=== PATIENT | male | born 1980 | race Caucasian/White ===

== ENCOUNTER 2021-09-22 10:25 | Emergency (ER) | payer MEDICAID, SELFPAY ==
[2021-09-22 11:40] VITALS: BP 153/103; PULSE 81; RESP 20; TEMP 37.1; O2SAT 99; BMI 38.5
--- NOTE | 2021-09-22 12:10 | MHC.RECOVSUP ---
Recovery Support note: Patient is a 41 year old Omani speaking male who presented to [facility] ED for evaluation of COVID symptoms. Patient reports he was sent from his methadone clinic and that he was unable to get his methadone today. This residential mortgage underwriter spoke with [facility] nursing staff to confirm methadone dose. Siria Wheeler LPN reports patient last dosed on 09/21/21 and that he receives 300mg of methadone. Confirmation form completed and faxed to pharmacy. Patient will be provided with last dose letter once medicated.
[2021-09-22 12:29] LABS: COVID-19 Test Negative (Negative); IDNOW Serial# 9DD0AD1C
--- NOTE | 2021-09-22 13:03 | ED.GENADULT ---
HPI - General Adult General Chief complaint: General Medical Stated complaint: Covid symptoms Time Seen by Provider: 09/22/21 12:45 Source: patient Mode of arrival: ambulatory Limitations: no limitations History of Present Illness HPI narrative: Patient with upper respiratory symptoms. Recently exposed to COVID. Onset (ago): day(s) Severity: mild Associated symptoms: cough Related Data Home Medications Medication Instructions Recorded Confirmed methadone 10 mg tablet 300 mg PO DAILY 09/22/21 09/22/21 Allergies Allergy/AdvReac Type Severity Reaction Status Date / Time acetaminophen [ACETAMINOPHEN] Allergy Unknown UNKNOWN Unverified 07/18/20 17:55 codeine [CODEINE] Allergy Unknown UNKNOWN Unverified 07/18/20 17:55 indomethacin [INDOMETHACIN] Allergy Unknown UNKNOWN Unverified 07/18/20 17:55 Iodinated Contrast Media Allergy Unknown UNKNOWN Unverified 07/18/20 17:55 [CONTRAST, IV] Review of Systems Constitutional: Constitutional: Reports no additional constitutional complaints Eyes: Eyes: Reports no additional eye complaints ENT: Denies dizziness Cardiovascular: Cardiovascular: Reports no additional cardiovascular complaints Respiratory: Respiratory: Reports as per HPI Gastrointestinal: Gastrointestinal: Reports no additional gastrointestinal complaints Musculoskeletal: Musculoskeletal: Reports no additional musculoskeletal complaints Integumentary/Breasts: Skin/Breast: Denies rash Neurologic: Reports system reviewed and no additional complaints, except as documented, Denies dizziness and Denies Sensory deficit (Neuro) Psychiatric: Psychiatric: Denies anxiety [facility] Past Medical History Medical History (Updated 09/22/21 @ 13:12 by Solitario Chadwick MD) Methadone dependence Physical Exam Vital Signs: Vital Signs: Last Vital Signs Temp 98.7 F 09/22/21 11:40 Pulse 81 09/22/21 11:40 Resp 20 09/22/21 11:40 BP 153/103 H 09/22/21 11:40 Pulse Ox 99 09/22/21 11:40 Body Mass Index 38.5 Const: General: healthy appearing Nutritional Appearance: average body habitus Orientation/consciousness: oriented to person and patient oriented x3 Limitations: no limitations HENMT: Head: Yes normal to inspection Ears: external ears normal General nose exam: Normal external nose present Mouth: Normal oral and palatal mucosa present and oropharynx normal Throat: Yes posterior oropharynx normal Eyes: General: appearance normal, both eyes and all related structures Neck: Other: supple Neck: Yes normal visual inspection Chest: Chest palpation & inspection: normal inspection of the chest Resp: Auscultation: clear to auscultation bilaterally Cardio: Jugular venous distension: no JVD Rate: regular rate Rhythm: regular rhythm Heart sounds: S1 normal heart sound present and S2 normal heart sound present GI: Inspection: Yes normal to inspection Palpation (GI): Soft to palpation, nontender and No hepatosplenomegaly present Auscultation: normal bowel sounds : General: Yes no CVA tenderness Back/Spine/Pelvis: Back: no CVA tenderness Skin: General skin exam: no rashes or lesions noted Neuro: General: oriented to person and patient oriented x3 Cranial nerves: Yes CN's II-XII intact bilaterally Motor exam (neuro): 5/5 motor strength present throughout Sensory Exam: No Sensory deficit (Neuro) Extrem: General: Yes normal to inspection Psych: Appearance: grossly normal Course Reevaluation(s) Reevaluation #1: Although patient tested negative, he was recently exposed. He needs to wait 7-10 days before retesting unless he gets worse Time: 13:09 Medical Decision Making Lab Data Labs: Lab Results 09/22/21 Range/Units 11:45 COVID-19 ([facility]) Negative (Negative) COVID-19 Clin Com See Note Discharge Plan Discharge Clinical Impression: Upper respiratory infection Patient Disposition: Home, Self-Care Instructions: Viral Syndrome (ED) Additional Instructions: should be retested in 7-10 days. should keep isolated during that time Prescriptions: No Action methadone 10 mg Tablet 300 mg PO DAILY RF: 0 Referrals: Physician,None [Primary Care Provider] - 1 week
[2021-09-22] MEDS: methADONE HCl 20 MG/2 ML ORAL.CONC 300 MG PO (13:51)
== END 2021-09-22 13:55 | disposition home or self-care (01) ==
LOC: HO.ED 13:31
PROVIDERS: Emergency Provider Emergency Medicine
DX: J06.9 Acute upper respiratory infection, unspecified (principal); R05.9 Cough, unspecified; Z20.822 Contact with and (suspected) exposure to COVID-19; F11.20 Opioid dependence, uncomplicated
CPT/HCPCS: 36415; 87635; 99282; 99283

== ENCOUNTER 2022-01-13 19:29 | Inpatient (IN) | payer OTHER, SELFPAY ==
--- NOTE | 2022-01-13 19:50 | PC.NURSE ---
Dr. Padilla was informed at this time that this patient would need an H&P due to arriving from [facility].
[2022-01-13 22:00] VITALS: BP 128/84; PULSE 85; RESP 18; TEMP 36.8; O2SAT 98
[2022-01-13] MEDS: Gabapentin 400 MG CAPSULE 800 MG PO (22:01)
[2022-01-13] MEDS: QUEtiapine Fumarate 50 MG TABLET PO (22:02)
[2022-01-13] MEDS: busPIRone HCl 5 MG TABLET 15 MG PO (22:03)
[2022-01-13] MEDS: OXcarbazepine 300 MG TABLET 600 MG PO (22:03)
[2022-01-13] MEDS: Prazosin HCL 1 MG CAPSULE PO (22:04)
[2022-01-13] MEDS: Nicotine Polacrilex 2 MG GUM BUCCAL (22:07)
[2022-01-13] MEDS: diazePAM 5 MG TABLET 10 MG PO (22:07)
[2022-01-13 22:42] VITALS: BMI 37.2
--- NOTE | 2022-01-13 23:46 | PC.ADMIT ---
41 year old male, Romanian speaking was in [facility] ER and transported to [facility]. Patient admitted to [facility] ER with SI, plan to overdose on street drugs or cut wrists. Patient signed a CV on admission. Utox was negative and is Covid Negative. Patient stated that both his mother and grandmother are sick. Patient has a history of several suicide attempts in the past. Patient currently reports some SI, but contracts for safety on the unit. No AH/VH reported. Patient has MS.
[2022-01-14 07:57] LABS: Alanine Aminotransferase 29 U/L (0-40); Albumin Level 3.8 g/dL (3.5-5.0); Alkaline Phosphatase 84 U/L (39-117); Anion Gap 12 (12-20); Aspartate Amino Transferase 27 U/L (5-37); Bilirubin Total 0.4 mg/dL (0.0-1.0); Blood Urea Nitrogen 17 mg/dL (9-16); Calcium 9.2 mg/dL (8.4-10.2); Carbon Dioxide 26 mmol/L (22-29); Chloride 105 mmol/L (96-108); Cholesterol 149 mg/dL; Creatinine Clr Calc Pharmacy 183.3; Estimated Glomerular Filt Rate > 60; Glucose Fasting 90 mg/dL (60-99); HDL Cholesterol 47 mg/dL; LDL Cholesterol Calculated 86 mg/dl; Potassium 4.6 mmol/L (3.3-5.1); Sodium 138 mmol/L (135-145); Total Protein 6.7 g/dL (6.5-8.0); Triglycerides 81 mg/dL
[2022-01-14] MEDS: methADONE HCl 20 MG/2 ML ORAL.CONC 290 MG PO (08:21)
[2022-01-14] MEDS: valACYclovir HCL 500 MG TABLET PO (08:26)
[2022-01-14] MEDS: Gabapentin 400 MG CAPSULE 800 MG PO ×4 (08:26→21:08)
[2022-01-14] MEDS: busPIRone HCl 5 MG TABLET 15 MG PO ×3 (08:26→21:07)
[2022-01-14] MEDS: Nicotine Polacrilex 2 MG GUM BUCCAL ×3 (08:29→16:21)
[2022-01-14] MEDS: diazePAM 5 MG TABLET 10 MG PO ×3 (08:29→21:22)
[2022-01-14] MEDS: OXcarbazepine 300 MG TABLET 600 MG PO ×2 (08:36→21:08)
[2022-01-14 09:29] VITALS: BP 128/69; PULSE 69; RESP 16; TEMP 36.4; O2SAT 99
--- NOTE | 2022-01-14 09:33 | HO.PSYADMNOT ---
HPI Date of Service: 01/14/22 Chief Complaint: depressive disorder Sources of Information: patient interviewed, chart reviewed and crisis/core team assessment reviewed HPI Subjective Notes: Conditional Voluntary Narrative: Mr. Hankins is a 41 year-old male with hx of MDD, opioid use disorder in early remission on methadone, who self presented to [facility] reporting increased depressed mood, SI in setting of multiple stressors including limited social supports and communication with mother, legal concerns on probation. In the ED utox was negative for opioids and cocaine. No other substances tested. On the unit, Mr. Hankins presents as pleasant. Pt is well known to this law writer through several admission at previous [facility]. 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 Pt reports more periods of sobriety in the past 2 years. He reports he stayed at [facility] back in 2019 and has continued on methadone. Pt reports he has been experiencing more depressed mood, anhedonia in the past month. He reports worrying about relapse and ongoing to substance use treatment. Pt reports he would like to be in sober house. He reports passive SI. He reports sleep and appetite are good. Past Psychiatric History: Inpatient: more than 14 since 2018. Most recent one [facility] 08/04/2021. OP: PCP prescribing, no therapist. Past medication trials: cymbalta, gabapentin, seroquel, trileptal, trazodone Medical Evaluation Reviewed: Hospitalist Ariel Pending [facility] Medical History (Updated 01/15/22 @ 10:04 by Sharmila Lehman) Methadone dependence Family History: none Social History: Pt . He has son with whom he does not have much contact. working on and off. Substance History: opiates: use since teens, reports last fentanyl use about one month ago. cocaine: since teens reports last use more than one month ago Trauma History: denies Diagnostics Vital Signs (24Hr): Vital Signs - 24 hr 01/13/22 22:00 01/14/22 09:29 Temperature 98.3 F 97.6 F Pulse Rate 85 69 Respiratory Rate 18 16 Blood Pressure 128/84 128/69 Pulse Oximetry 98 99 BMI result Body Mass Index 37.2 Labs Results: 01/14/22 07:34 Labs: Laboratory Results - last 48 hr 01/14/22 07:34 Sodium 138 Potassium 4.6 Chloride 105 Carbon Dioxide 26 Anion Gap 12 BUN 17 H Creatinine 0.78 Estim Creat Clear Calc 183.3 Estimated GFR > 60 Fasting Glucose 90 Calcium 9.2 Total Bilirubin 0.4 AST 27 ALT 29 Alkaline Phosphatase 84 Total Protein 6.7 Albumin 3.8 Triglycerides 81 Cholesterol 149 LDL Cholesterol, Calc 86 HDL Cholesterol 47 Meds/Allergies Meds Home Medications Al Hydroxide/Mg Hydroxide (Magnesium Hydrox/Alum Hydrox 30 Ml Oral.Susp) 30 ml PO Q6H PRN PRN Reason: Heartburn/Nausea Albuterol Sulfate (Albuterol Sulfate 90 Mcg 8 Gm Inhaler) 2 puff INHALE Q4H PRN PRN Reason: Shortness of Breath Buspirone HCl (Buspirone Hcl 5 Mg Tablet) 15 mg PO TID [facility] Last Admin: 01/15/22 08:12 Dose: 15 mg Documented by: Diazepam (Diazepam 5 Mg Tablet) 10 mg PO TID PRN PRN Reason: Anxiety Last Admin: 01/15/22 08:13 Dose: 10 mg Documented by: Duloxetine HCl (Duloxetine Hcl 60 Mg Capsule.Dr) 60 mg PO DAILY [facility] Gabapentin (Gabapentin 400 Mg Capsule) 800 mg PO QID [facility] Last Admin: 01/15/22 08:13 Dose: 800 mg Documented by: Hydroxyzine HCl (Hydroxyzine Hcl 25 Mg Tablet) 25 mg PO BEDTIME PRN PRN Reason: Anxiety Ibuprofen (Ibuprofen 600 Mg Tablet) 600 mg PO Q6H PRN PRN Reason: Pain, Moderate (Pain Scale 4-6 Last Admin: 01/15/22 02:03 Dose: 600 mg Documented by: Magnesium Hydroxide (Milk Of Magnesia 30 Ml Oral.Susp) 30 ml PO DAILY PRN PRN Reason: Constipation Last Admin: 01/14/22 21:22 Dose: 30 ml Documented by: Methadone HCl (Methadone Hcl 20 Mg/2 Ml Oral.Conc) 290 mg PO DAILY [facility] Last Admin: 01/15/22 08:10 Dose: 290 mg Documented by: Nicotine Polacrilex (Nicotine Polacrilex 2 Mg Gum) 4 mg BUCCAL Q2H PRN PRN Reason: Nicotine Cravings Last Admin: 01/15/22 08:13 Dose: 4 mg Documented by: Oxcarbazepine (Oxcarbazepine 300 Mg Tablet) 600 mg PO BID [facility] Last Admin: 01/15/22 08:13 Dose: 600 mg Documented by: Prazosin HCl (Prazosin Hcl 1 Mg Capsule) 1 mg PO BEDTIME [facility]; Protocol Last Admin: 01/14/22 21:08 Dose: 1 mg Documented by: Quetiapine Fumarate (Quetiapine Fumarate 50 Mg Tablet) 50 mg PO BEDTIME [facility] Last Admin: 01/14/22 21:08 Dose: 50 mg Documented by: Trazodone HCl (Trazodone Hcl 50 Mg Tablet) 50 mg PO BEDTIME PRN PRN Reason: Insomnia Valacyclovir HCl (Valacyclovir Hcl 500 Mg Tablet) 500 mg PO DAILY [facility] Last Admin: 01/15/22 08:12 Dose: 500 mg Documented by: Allergies Allergies Allergy/AdvReac Type Severity Reaction Status Date / Time acetaminophen [ACETAMINOPHEN] Allergy Unknown UNKNOWN Unverified 07/18/20 17:55 codeine [CODEINE] Allergy Unknown UNKNOWN Unverified 07/18/20 17:55 indomethacin [INDOMETHACIN] Allergy Unknown UNKNOWN Unverified 07/18/20 17:55 Iodinated Contrast Media Allergy Unknown UNKNOWN Unverified 07/18/20 17:55 [CONTRAST, IV] Mental Status Exam Mental Status Exam Narrative: Appearance:MO, casually groomed, fair hygiene in NAD Behavior:cooperative psychomotor: no agitation or retardation noted Speech:clear, normal rate/rhythm,volume, spontaneous Thought process:linear Thought content:no signs of psychosis, future oriented Mood: better Affect: congruent, brightens at times SI:passive HI:none VH/AH:none Delusions:none Insight/judgment:fair x 2. Memory/cog: alert, oriented x 3. grossly intact to conversational testing. Assessment & Plan Assessment & Plan (1) MDD (major depressive disorder), recurrent episode, moderate: Status: Acute Code(s): F33.1 - Major depressive disorder, recurrent, moderate (2) Opioid use disorder, moderate, dependence: Status: Acute Code(s): F11.20 - Opioid dependence, uncomplicated Plan Mr. Hankins is a 41 year-old male with hx of MDD, opioid use in early remission on methadone who self presented to [facility] reporting increase depressed mood, SI with plan to OD in setting of multiple psychosocial stressors including legal issues on probation, unstable living situation, worried about relapsing or losing job. Utox negative for opiates and cocaine at [facility], no utox done for fentanyl, which pt denies recent use. PLAN 1. Admit to [facility], CV, 15 mins checks 2. increase cymbalta to 60mg po daily 3. obtain collateral information 4. Aftercare planning. Patient educated on: diagnosis, medication risk/benefits and substance abuse Reason for continued inpatient stay Substantial Risk for: harm to self
--- NOTE | 2022-01-14 10:14 | P.CONHOSP_ITS ---
History of Present Illness Data of Consult Service Date: 01/14/22 Primary Care Provider: Unknown Physician HPI Reason for consult: Routine Medical H&P This is a 41 yo M with a PMH as outlined below who is admitted to the inpatient psych unit. Medical consult requested for routine medical H&P per protocol. Patient is seen and examined on the unit. They deny any medical complaints at this time. PMH MS -- reports diagnosed in 2012, was previously on treatment, but not on anything since 2013 PSH denies FH reports MS in multiple family members including mother SH Tobacco use -- quit about 1 month ago; currently in [place] Review of Systems Review of Systems: negative except HPI [facility] Medical History (Updated 01/14/22 @ 11:31 by Tl Grimm MD) Methadone dependence Social History Household Members: None Housing: Homeless Do you presently have visiting nurse or other home services: No Patient Tobacco Use Status: Former Tobacco user Tobacco use type: Cigarette Smoked in Last 30 Days: Yes e-Cigarette/Vaping Use: Never Used Patient Interested in Nicotine Replacement: Yes Patient Given Instructions on How to Stop Smoking: Yes Date Education Initiated: 01/13/22 Second Hand Smoke Exposure: Yes Use of substances other than those prescribed or required for medical reasons: No Currently Displaying Signs/Symptoms of Drug Intoxication Withdrawal: No Any prior treatment program specific to substance use: No Have you been hit, kicked, punched, or otherwise hurt by someone within the past year? If so, by whom?: No Do you feel safe in your current relationship?: No Current Relationship Is there a partner from a previous relationship who is making you feel unsafe now?: No Are you made to feel afraid or neglected: No Spiritual Healthcare Practices: none Cheondoism Healthcare Practices: Amish Cultural Healthcare Practices: none Advance Directives: No Advance Directives Information Provided: No Advance Directives on File: No Do you have thoughts of harming others: None Do you have a plan to hurt others: No Plan Recently lost weight without trying: No Eating poorly because of decreased appetite: Yes Nutrition Risks: No Nutritional Risk Poor oral hygiene: No Meds Allergies Allergy/AdvReac Type Severity Reaction Status Date / Time acetaminophen [ACETAMINOPHEN] Allergy Unknown UNKNOWN Unverified 07/18/20 17:55 codeine [CODEINE] Allergy Unknown UNKNOWN Unverified 07/18/20 17:55 indomethacin [INDOMETHACIN] Allergy Unknown UNKNOWN Unverified 07/18/20 17:55 Iodinated Contrast Media Allergy Unknown UNKNOWN Unverified 07/18/20 17:55 [CONTRAST, IV] Active Medications: Current Medications Al Hydroxide/Mg Hydroxide (Magnesium Hydrox/Alum Hydrox 30 Ml Oral.Susp) 30 ml PO Q6H PRN PRN Reason: Heartburn/Nausea Albuterol Sulfate (Albuterol Sulfate 90 Mcg 8 Gm Inhaler) 2 puff INHALE Q4H PRN PRN Reason: Shortness of Breath Buspirone HCl (Buspirone Hcl 5 Mg Tablet) 15 mg PO TID [facility] Last Admin: 01/14/22 08:26 Dose: 15 mg Documented by: Diazepam (Diazepam 5 Mg Tablet) 10 mg PO BID PRN PRN Reason: Anxiety Last Admin: 01/14/22 08:29 Dose: 10 mg Documented by: Gabapentin (Gabapentin 400 Mg Capsule) 800 mg PO TID [facility] Last Admin: 01/14/22 08:26 Dose: 800 mg Documented by: Hydroxyzine HCl (Hydroxyzine Hcl 25 Mg Tablet) 25 mg PO BEDTIME PRN PRN Reason: Anxiety Magnesium Hydroxide (Milk Of Magnesia 30 Ml Oral.Susp) 30 ml PO DAILY PRN PRN Reason: Constipation Methadone HCl (Methadone Hcl 20 Mg/2 Ml Oral.Conc) 290 mg PO DAILY [facility] Last Admin: 01/14/22 08:21 Dose: 290 mg Documented by: Nicotine Polacrilex (Nicotine Polacrilex 2 Mg Gum) 2 mg BUCCAL Q1H PRN PRN Reason: Nicotine Cravings Last Admin: 01/14/22 08:29 Dose: 2 mg Documented by: Oxcarbazepine (Oxcarbazepine 300 Mg Tablet) 600 mg PO BID [facility] Last Admin: 01/14/22 08:36 Dose: 600 mg Documented by: Prazosin HCl (Prazosin Hcl 1 Mg Capsule) 1 mg PO BEDTIME [facility]; Protocol Last Admin: 01/13/22 22:04 Dose: 1 mg Documented by: Quetiapine Fumarate (Quetiapine Fumarate 50 Mg Tablet) 50 mg PO BEDTIME [facility] Last Admin: 01/13/22 22:02 Dose: 50 mg Documented by: Trazodone HCl (Trazodone Hcl 50 Mg Tablet) 50 mg PO BEDTIME PRN PRN Reason: Insomnia Valacyclovir HCl (Valacyclovir Hcl 500 Mg Tablet) 500 mg PO DAILY [facility] Last Admin: 01/14/22 08:26 Dose: 500 mg Documented by: Home Medications Medication Instructions Recorded Confirmed Last Taken Type methadone 10 mg tablet 290 mg PO DAILY 09/22/21 01/13/22 01/13/22 History ProAir HFA 2 puff INHALATION Q4H PRN 01/13/22 01/14/22 Unknown History buspirone 15 mg tablet 1 tab PO TID 01/13/22 01/13/22 01/13/22 History diazepam 10 mg tablet 1 tab PO TID PRN 01/13/22 01/14/22 01/13/22 History gabapentin 800 mg tablet 1 tab PO TID 01/13/22 01/13/22 01/13/22 History nicotine (polacrilex) 2 mg gum 4 mg BUCCAL Q2H PRN 01/13/22 01/14/22 01/13/22 History oxcarbazepine 600 mg tablet 600 mg PO BID 01/13/22 01/13/22 01/13/22 History (Trileptal) prazosin 1 mg capsule 1 mg PO BEDTIME 01/13/22 01/13/22 01/12/22 History valacyclovir 500 mg tablet 500 mg PO DAILY 01/13/22 01/13/22 01/13/22 History (Valtrex) duloxetine 30 mg capsule,delayed 30 mg PO DAILY 01/14/22 01/14/22 Unknown History release (Cymbalta) quetiapine 50 mg tablet 50 mg PO DAILY PRN 01/14/22 01/14/22 Unknown History Physical Exam Vital Signs and Narrative: Vital Signs: Last Vital Signs Temp 97.6 F 01/14/22 09:29 Pulse 69 01/14/22 09:29 Resp 16 01/14/22 09:29 BP 128/69 01/14/22 09:29 Pulse Ox 99 01/14/22 09:29 BMI result Body Mass Index 37.2 Const: Other: General - no acute distress, appears comfortable Cardiovascular - regular rate and rhythm, S1-S2 Lungs - normal respiratory effort, clear to auscultation bilaterally, no wheezi ng Abdomen - soft, nontender, no rebound or guarding Extremities - no edema bilaterally Neuro - awake and alert, no focal deficits; CN 2-12 intact b/l Results Labs CBC and Chem 7: 01/14/22 07:34 Labs: Laboratory Results - last 24 hr 01/14/22 07:34 Anion Gap 12 Estim Creat Clear Calc 183.3 Estimated GFR > 60 Fasting Glucose 90 Calcium 9.2 Total Bilirubin 0.4 AST 27 ALT 29 Alkaline Phosphatase 84 Total Protein 6.7 Albumin 3.8 Triglycerides 81 Cholesterol 149 LDL Cholesterol, Calc 86 HDL Cholesterol 47 Assessment and Plan (1) Routine medical exam: Status: Acute Plan Medical consultation sought for routine medical H&P. Patient has no active medical issues. He endorses a history of MS -- reports he has recently followed up with a Neurologist as an outpatient. Patient has been counseled on age appropriate health maintenance as an outpatient. Continue care per primary team. Will sign off. Please re-consult if any issues arise.
[2022-01-14] MEDS: Ibuprofen 600 MG TABLET PO (16:54)
[2022-01-14] MEDS: Nicotine Polacrilex 2 MG GUM 4 MG BUCCAL (20:37)
[2022-01-14] MEDS: Prazosin HCL 1 MG CAPSULE PO (21:08)
[2022-01-14] MEDS: QUEtiapine Fumarate 50 MG TABLET PO (21:08)
[2022-01-14 21:19] VITALS: BP 142/75; PULSE 94; TEMP 36.4; O2SAT 96
[2022-01-14] MEDS: Milk of Magnesia 30 ML ORAL.SUSP PO (21:22)
[2022-01-15] MEDS: Ibuprofen 600 MG TABLET PO ×2 (02:03→22:31)
[2022-01-15 02:37] LABS: Amphetamine Screen Urine Not Detected (Not Detect); Barbiturates, Urine Not Detected (Not Detect); Benzodiazepines Screen Urine POSITIVE (Not Detect); Cannabinoid Screen Urine Not Detected (Not Detect); Cocaine Screen Urine Not Detected (Not Detect); Fentanyl, urine Not Detected (Not Detect); Opiate Screen Urine Not Detected (Not Detect); Phencyclidine Screen Urine Not Detected (Not Detect)
[2022-01-15] MEDS: Nicotine Polacrilex 2 MG GUM 4 MG BUCCAL ×6 (04:30→22:31)
[2022-01-15 07:55] VITALS: BP 130/84; PULSE 79; RESP 17; TEMP 36.6; O2SAT 96
[2022-01-15] MEDS: methADONE HCl 20 MG/2 ML ORAL.CONC 290 MG PO (08:10)
[2022-01-15] MEDS: valACYclovir HCL 500 MG TABLET PO (08:12)
[2022-01-15] MEDS: busPIRone HCl 5 MG TABLET 15 MG PO ×3 (08:12→22:22)
[2022-01-15] MEDS: OXcarbazepine 300 MG TABLET 600 MG PO ×2 (08:13→22:23)
[2022-01-15] MEDS: Gabapentin 400 MG CAPSULE 800 MG PO ×4 (08:13→22:22)
[2022-01-15] MEDS: diazePAM 5 MG TABLET 10 MG PO ×3 (08:13→22:23)
[2022-01-15 08:51] VITALS: BMI 42.4
--- NOTE | 2022-01-15 09:38 | HO.PSYCHPN ---
Subjective Subjective Date of Service: 01/15/22 Reason For Visit: depressive disorder Interim History: Pt reports feeling more hopeful, tearful at times talking about things he has lost due to substance use. He denies SI/HI. He has been visible in the unit, social with select peers. Pt reports increase in gabapentin can help with pain. He also reports nightmares and asks increase in prazosin. Medication Compliance: Yes Side effects from medications: No Review of Systems Review of Systems negative except HPI Constitutional: Reports weight gain Eyes: Reports no additional eye complaints Cardiovascular: Denies chest pain and Denies dyspnea Respiratory: Denies dyspnea Gastrointestinal: Reports constipation and Denies GI cramping Mental Status Exam Mental Status Exam Narrative: Appearance:MO, casually groomed, fair hygiene in NAD Behavior:cooperative psychomotor: no agitation or retardation noted Speech:clear, normal rate/rhythm,volume, spontaneous Thought process:linear Thought content:no signs of psychosis, future oriented Mood: better Affect: congruent, brightens at times SI:passive HI:none VH/AH:none Delusions:none Insight/judgment:fair x 2. Memory/cog: alert, oriented x 3. grossly intact to conversational testing. Diagnostics Vital Signs (24Hr): Vital Signs - 24 hr 01/15/22 22:14 01/16/22 08:15 Temperature 97.6 F 97.8 F Pulse Rate 90 87 Respiratory Rate 17 Blood Pressure 135/79 129/70 Pulse Oximetry 96 97 BMI result Body Mass Index 42.4 Labs Results: 01/14/22 07:34 Labs: Laboratory Results - last 48 hr 01/15/22 02:09 Urine Opiates Screen Not Detected Urine Fentanyl Screen Not Detected Ur Barbiturates Screen Not Detected Ur Phencyclidine Scrn Not Detected Ur Amphetamines Screen Not Detected U Benzodiazepines Scrn POSITIVE H Urine Cocaine Screen Not Detected U Marijuana (THC) Screen Not Detected Medications Medications Current Medications Al Hydroxide/Mg Hydroxide (Magnesium Hydrox/Alum Hydrox 30 Ml Oral.Susp) 30 ml PO Q6H PRN PRN Reason: Heartburn/Nausea Last Admin: 01/15/22 17:45 Dose: 30 ml Documented by: Albuterol Sulfate (Albuterol Sulfate 90 Mcg 8 Gm Inhaler) 2 puff INHALE Q4H PRN PRN Reason: Shortness of Breath Benzocaine (Benzocaine 20 % Oral Gel 9 Gm Tube) 1 appl MUCOUS MEM QID PRN; Protocol PRN Reason: dental pain Buspirone HCl (Buspirone Hcl 5 Mg Tablet) 15 mg PO TID [facility] Last Admin: 01/16/22 08:04 Dose: 15 mg Documented by: Diazepam (Diazepam 5 Mg Tablet) 10 mg PO TID PRN PRN Reason: Anxiety Last Admin: 01/16/22 08:09 Dose: 10 mg Documented by: Duloxetine HCl (Duloxetine Hcl 60 Mg Capsule.Dr) 60 mg PO DAILY [facility] Last Admin: 01/16/22 08:06 Dose: 60 mg Documented by: Gabapentin (Gabapentin 400 Mg Capsule) 1,200 mg PO TID [facility] Hydroxyzine HCl (Hydroxyzine Hcl 25 Mg Tablet) 25 mg PO BEDTIME PRN PRN Reason: Anxiety Ibuprofen (Ibuprofen 600 Mg Tablet) 600 mg PO Q6H PRN PRN Reason: Pain, Moderate (Pain Scale 4-6 Last Admin: 01/15/22 22:31 Dose: 600 mg Documented by: Magnesium Hydroxide (Milk Of Magnesia 30 Ml Oral.Susp) 30 ml PO DAILY PRN PRN Reason: Constipation Last Admin: 01/15/22 22:31 Dose: 30 ml Documented by: Methadone HCl (Methadone Hcl 20 Mg/2 Ml Oral.Conc) 290 mg PO DAILY [facility] Last Admin: 01/16/22 07:59 Dose: 290 mg Documented by: Nicotine (Nicotine 21 Mg Patch.Td24) 21 mg TRANSDERMA DAILY [facility] Last Admin: 01/16/22 08:10 Dose: 21 mg Documented by: Nicotine Polacrilex (Nicotine Polacrilex 2 Mg Gum) 4 mg BUCCAL Q2H PRN PRN Reason: Nicotine Cravings Last Admin: 01/16/22 08:09 Dose: 4 mg Documented by: Oxcarbazepine (Oxcarbazepine 300 Mg Tablet) 600 mg PO BID [facility] Last Admin: 01/16/22 08:05 Dose: 600 mg Documented by: Prazosin HCl (Prazosin Hcl 1 Mg Capsule) 2 mg PO BEDTIME [facility]; Protocol Quetiapine Fumarate (Quetiapine Fumarate 50 Mg Tablet) 50 mg PO BEDTIME [facility] Last Admin: 01/15/22 22:23 Dose: 50 mg Documented by: Senna/Docusate Sodium (Sennosides/Docusate Sodium Tablet) 2 tab PO BEDTIME [facility] Trazodone HCl (Trazodone Hcl 50 Mg Tablet) 50 mg PO BEDTIME PRN PRN Reason: Insomnia Valacyclovir HCl (Valacyclovir Hcl 500 Mg Tablet) 500 mg PO DAILY [facility] Last Admin: 01/16/22 08:06 Dose: 500 mg Documented by: Allergies Allergies Allergy/AdvReac Type Severity Reaction Status Date / Time acetaminophen [ACETAMINOPHEN] Allergy Unknown UNKNOWN Unverified 07/18/20 17:55 codeine [CODEINE] Allergy Unknown UNKNOWN Unverified 07/18/20 17:55 indomethacin [INDOMETHACIN] Allergy Unknown UNKNOWN Unverified 07/18/20 17:55 Iodinated Contrast Media Allergy Unknown UNKNOWN Unverified 07/18/20 17:55 [CONTRAST, IV] Assessment & Plan Assessment & Plan (1) MDD (major depressive disorder), recurrent episode, moderate: Status: Acute Code(s): F33.1 - Major depressive disorder, recurrent, moderate (2) Opioid use disorder, moderate, dependence: Status: Acute Code(s): F11.20 - Opioid dependence, uncomplicated Plan Mr. Hankins is a 41 year-old male with hx of MDD, opioid use in early remission on methadone who self presented to [facility] reporting increase depressed mood, SI with plan to OD in setting of multiple psychosocial stressors including legal issues on probation, unstable living situation, worried about relapsing or losing job. [place] [facility] [place] utox done for fentanyl, which pt denies recent use. PLAN 1. Admit to M3, CV, 15 mins checks 2. increase cymbalta to 60mg po daily, increase gabapentin to 1200mg po TID (monitor sedation), increase prazosin 2mg po qhs 3. obtain collateral information 4. Aftercare planning. I spent minutes with the patient and/or on the patient floor today, greater than?50% of which was spent counseling/coordinating care. Reason for contiued inpatient stay Substantial Risk for: harm to self
[2022-01-15] MEDS: DULoxetine HCl 60 MG CAPSULE.DR PO (10:19)
[2022-01-15] MEDS: Nicotine 21 MG PATCH.TD24 TRANSDERMA (12:40)
[2022-01-15] MEDS: Magnesium Hydrox/Alum Hydrox 30 ML ORAL.SUSP PO (17:45)
[2022-01-15 22:14] VITALS: BP 135/79; PULSE 90; TEMP 36.4; O2SAT 96
[2022-01-15] MEDS: Prazosin HCL 1 MG CAPSULE PO (22:22)
[2022-01-15] MEDS: QUEtiapine Fumarate 50 MG TABLET PO (22:23)
[2022-01-15] MEDS: Milk of Magnesia 30 ML ORAL.SUSP PO (22:31)
[2022-01-16] MEDS: methADONE HCl 20 MG/2 ML ORAL.CONC 290 MG PO (07:59)
[2022-01-16] MEDS: busPIRone HCl 5 MG TABLET 15 MG PO ×3 (08:04→20:30)
[2022-01-16] MEDS: Gabapentin 400 MG CAPSULE 800 MG PO (08:04)
[2022-01-16] MEDS: OXcarbazepine 300 MG TABLET 600 MG PO ×2 (08:05→20:30)
[2022-01-16] MEDS: valACYclovir HCL 500 MG TABLET PO (08:06)
[2022-01-16] MEDS: DULoxetine HCl 60 MG CAPSULE.DR PO (08:06)
[2022-01-16] MEDS: diazePAM 5 MG TABLET 10 MG PO ×3 (08:09→20:31)
[2022-01-16] MEDS: Nicotine Polacrilex 2 MG GUM 4 MG BUCCAL ×4 (08:09→20:35)
[2022-01-16] MEDS: Nicotine 21 MG PATCH.TD24 TRANSDERMA (08:10)
[2022-01-16 08:15] VITALS: BP 129/70; PULSE 87; RESP 17; TEMP 36.6; O2SAT 97
--- NOTE | 2022-01-16 10:23 | P.PNPSI_ITS ---
Subjective Subjective Date of Service: 01/16/22 Reason For Visit: depressive disorder Subjective Notes: Conditional Voluntary Interim History: Pt tearful because this month he did not work as much and unable to pay credit card bill. Pt expresses feeling of guilt/shame related to relationships that he has lost over the years due to substance use. Pt struggling with regaining trust from others as he did not keep promises for years. Pt reports sleeping better- slightly sedated during the day with current medications. He denies SI/HI. He continues to be motivated to do residential substance use treatment. Medication Compliance: Yes Review of Systems Review of Systems negative except HPI Constitutional: Reports weight gain Eyes: Reports no additional eye complaints Cardiovascular: Denies chest pain and Denies dyspnea Respiratory: Denies dyspnea Gastrointestinal: Reports constipation and Denies GI cramping Mental Status Exam Mental Status Exam Narrative: Appearance:MO, casually groomed, fair hygiene in NAD Behavior:cooperative psychomotor: no agitation or retardation noted Speech:clear, normal rate/rhythm,volume, spontaneous Thought process:linear Thought content:no signs of psychosis, future oriented Mood: better Affect: congruent, brightens at times SI:passive HI:none VH/AH:none Delusions:none Insight/judgment:fair x 2. Memory/cog: alert, oriented x 3. grossly intact to conversational testing. Diagnostics Vital Signs (24Hr): Vital Signs - 24 hr 01/16/22 20:20 01/17/22 08:25 Temperature 97.8 F 98.1 F Pulse Rate 80 84 Respiratory Rate 20 18 Blood Pressure 140/63 H 153/72 H Pulse Oximetry 96 97 BMI result Body Mass Index 42.4 Labs Results: 01/14/22 07:34 Medications Medications Current Medications Al Hydroxide/Mg Hydroxide (Magnesium Hydrox/Alum Hydrox 30 Ml Oral.Susp) 30 ml PO Q6H PRN PRN Reason: Heartburn/Nausea Last Admin: 01/15/22 17:45 Dose: 30 ml Documented by: Albuterol Sulfate (Albuterol Sulfate 90 Mcg 8 Gm Inhaler) 2 puff INHALE Q4H PRN PRN Reason: Shortness of Breath Benzocaine (Benzocaine 20 % Oral Gel 9 Gm Tube) 1 appl MUCOUS MEM QID PRN; Protocol PRN Reason: dental pain Last Admin: 01/17/22 03:52 Dose: 1 appl Documented by: Buspirone HCl (Buspirone Hcl 5 Mg Tablet) 15 mg PO TID [facility] Last Admin: 01/17/22 08:35 Dose: 15 mg Documented by: Diazepam (Diazepam 5 Mg Tablet) 10 mg PO TID PRN PRN Reason: Anxiety Last Admin: 01/17/22 08:34 Dose: 10 mg Documented by: Duloxetine HCl (Duloxetine Hcl 60 Mg Capsule.Dr) 60 mg PO DAILY [facility] Last Admin: 01/17/22 08:34 Dose: 60 mg Documented by: Gabapentin (Gabapentin 400 Mg Capsule) 1,200 mg PO TID [facility] Last Admin: 01/17/22 08:33 Dose: 1,200 mg Documented by: Hydroxyzine HCl (Hydroxyzine Hcl 25 Mg Tablet) 25 mg PO BEDTIME PRN PRN Reason: Anxiety Last Admin: 01/17/22 03:52 Dose: 25 mg Documented by: Ibuprofen (Ibuprofen 600 Mg Tablet) 600 mg PO Q6H PRN PRN Reason: Pain, Moderate (Pain Scale 4-6 Last Admin: 01/17/22 03:52 Dose: 600 mg Documented by: Magnesium Hydroxide (Milk Of Magnesia 30 Ml Oral.Susp) 30 ml PO DAILY PRN PRN Reason: Constipation Last Admin: 01/15/22 22:31 Dose: 30 ml Documented by: Methadone HCl (Methadone Hcl 20 Mg/2 Ml Oral.Conc) 290 mg PO DAILY [facility] Last Admin: 01/17/22 09:05 Dose: 290 mg Documented by: Nicotine (Nicotine 21 Mg Patch.Td24) 21 mg TRANSDERMA DAILY [facility] Last Admin: 01/17/22 08:36 Dose: 21 mg Documented by: Nicotine Polacrilex (Nicotine Polacrilex 2 Mg Gum) 4 mg BUCCAL Q2H PRN PRN Reason: Nicotine Cravings Last Admin: 01/17/22 08:36 Dose: 4 mg Documented by: Oxcarbazepine (Oxcarbazepine 300 Mg Tablet) 600 mg PO BID [facility] Last Admin: 01/17/22 08:35 Dose: 600 mg Documented by: Prazosin HCl (Prazosin Hcl 1 Mg Capsule) 2 mg PO BEDTIME [facility]; Protocol Last Admin: 01/16/22 20:30 Dose: 2 mg Documented by: Quetiapine Fumarate (Quetiapine Fumarate 50 Mg Tablet) 50 mg PO BEDTIME [facility] Last Admin: 01/16/22 20:31 Dose: 50 mg Documented by: Senna/Docusate Sodium (Sennosides/Docusate Sodium Tablet) 2 tab PO BEDTIME [facility] Last Admin: 01/16/22 20:30 Dose: 2 tab Documented by: Trazodone HCl (Trazodone Hcl 50 Mg Tablet) 50 mg PO BEDTIME PRN PRN Reason: Insomnia Valacyclovir HCl (Valacyclovir Hcl 500 Mg Tablet) 500 mg PO DAILY [facility] Last Admin: 01/17/22 08:36 Dose: 500 mg Documented by: Allergies Allergies Allergy/AdvReac Type Severity Reaction Status Date / Time indomethacin [INDOMETHACIN] Allergy Severe Anaphylaxis Verified 01/16/22 22:48 codeine [CODEINE] Allergy Unknown Hives Verified 01/16/22 22:48 Iodinated Contrast Media Allergy Unknown Hives Verified 01/16/22 22:48 [CONTRAST, IV] Assessment & Plan Assessment & Plan (1) MDD (major depressive disorder), recurrent episode, moderate: Status: Acute Code(s): F33.1 - Major depressive disorder, recurrent, moderate (2) Opioid use disorder, moderate, dependence: Status: Acute Code(s): F11.20 - Opioid dependence, uncomplicated Plan Mr. Hankins is a 41 year-old male with hx of MDD, opioid use in early remission on methadone who self presented to [facility] reporting increase depressed mood, SI with plan to OD in setting of multiple psychosocial stressors including legal issues on probation, unstable living situation, worried about relapsing or losing job. Utox negative for opiates and cocaine at [facility] [place], no utox done for fentanyl, which pt denies recent use. PLAN 1. Admit to M3, CV, 15 mins checks 2. increase cymbalta to 60mg po daily, increase gabapentin to 1200mg po TID (mon itor sedation), increase prazosin 2mg po qhs 3. obtain collateral information 4. Aftercare planning. I spent minutes with the patient and/or on the patient floor today, greater than?50% of which was spent counseling/coordinating care. Reason for contiued inpatient stay Substantial Risk for: harm to self
[2022-01-16] MEDS: Gabapentin 400 MG CAPSULE 1200 MG PO ×2 (15:15→20:30)
[2022-01-16 20:20] VITALS: BP 140/63; PULSE 80; RESP 20; TEMP 36.6; O2SAT 96
[2022-01-16] MEDS: Prazosin HCL 1 MG CAPSULE 2 MG PO (20:30)
[2022-01-16] MEDS: Sennosides/Docusate Sodium TABLET 2 TAB PO (20:30)
[2022-01-16] MEDS: Ibuprofen 600 MG TABLET PO (20:31)
[2022-01-16] MEDS: QUEtiapine Fumarate 50 MG TABLET PO (20:31)
[2022-01-17] MEDS: Ibuprofen 600 MG TABLET PO (03:52)
[2022-01-17] MEDS: hydrOXYzine HCL 25 MG TABLET PO (03:52)
[2022-01-17] MEDS: Benzocaine 20 % Oral Gel 9 GM TUBE 1 APPL MUCOUS MEM (03:52)
[2022-01-17] MEDS: Nicotine Polacrilex 2 MG GUM 4 MG BUCCAL ×5 (04:35→20:04)
[2022-01-17 08:25] VITALS: BP 153/72; PULSE 84; RESP 18; TEMP 36.7; O2SAT 97
[2022-01-17] MEDS: Gabapentin 400 MG CAPSULE 1200 MG PO ×3 (08:33→20:05)
[2022-01-17] MEDS: diazePAM 5 MG TABLET 10 MG PO ×3 (08:34→20:04)
[2022-01-17] MEDS: DULoxetine HCl 60 MG CAPSULE.DR PO (08:34)
[2022-01-17] MEDS: OXcarbazepine 300 MG TABLET 600 MG PO ×2 (08:35→20:05)
[2022-01-17] MEDS: busPIRone HCl 5 MG TABLET 15 MG PO ×3 (08:35→20:04)
[2022-01-17] MEDS: Nicotine 21 MG PATCH.TD24 TRANSDERMA (08:36)
[2022-01-17] MEDS: valACYclovir HCL 500 MG TABLET PO (08:36)
[2022-01-17] MEDS: methADONE HCl 20 MG/2 ML ORAL.CONC 290 MG PO (09:05)
--- NOTE | 2022-01-17 13:57 | HO.PSYCHPN ---
Subjective Subjective Date of Service: 01/17/22 Reason For Visit: depressive disorder Subjective Notes: Conditional Voluntary Interim History: The nursing staff reported that the patient has poor sleep, he has chronic pain but he looks less dysphoric. On interview the patient reported that he had a better day, his vital signs are stable. Mental Status Exam Mental Status Exam Patient Appearance: Appropriate Patient Orientation: Person Level of Consciousness: Alert Patient Behavior: Cooperative Mood Description: Withdrawn and Depressed Affect Description: Constricted Patient Cognition Impaired: No Ability to Follow Directions: Good Hallucinations: None Delusions: Not Present Thought Process: Distracted and Evasive Thought Content: positive for Circumstantial Judgement: Fair Diagnostics Vital Signs (24Hr): Vital Signs - 24 hr 01/16/22 20:20 01/17/22 08:25 Temperature 97.8 F 98.1 F Pulse Rate 80 84 Respiratory Rate 20 18 Blood Pressure 140/63 H 153/72 H Pulse Oximetry 96 97 BMI result Body Mass Index 42.4 Labs Results: 01/14/22 07:34 Medications Medications Current Medications Al Hydroxide/Mg Hydroxide (Magnesium Hydrox/Alum Hydrox 30 Ml Oral.Susp) 30 ml PO Q6H PRN PRN Reason: Heartburn/Nausea Last Admin: 01/15/22 17:45 Dose: 30 ml Documented by: Albuterol Sulfate (Albuterol Sulfate 90 Mcg 8 Gm Inhaler) 2 puff INHALE Q4H PRN PRN Reason: Shortness of Breath Benzocaine (Benzocaine 20 % Oral Gel 9 Gm Tube) 1 appl MUCOUS MEM QID PRN; Protocol PRN Reason: dental pain Last Admin: 01/17/22 03:52 Dose: 1 appl Documented by: Buspirone HCl (Buspirone Hcl 5 Mg Tablet) 15 mg PO TID [facility] Last Admin: 01/17/22 08:35 Dose: 15 mg Documented by: Diazepam (Diazepam 5 Mg Tablet) 10 mg PO TID PRN PRN Reason: Anxiety Last Admin: 01/17/22 08:34 Dose: 10 mg Documented by: Duloxetine HCl (Duloxetine Hcl 60 Mg Capsule.) 60 mg PO DAILY [facility] Last Admin: 01/17/22 08:34 Dose: 60 mg Documented by: Gabapentin (Gabapentin 400 Mg Capsule) 1,200 mg PO TID [facility] Last Admin: 01/17/22 08:33 Dose: 1,200 mg Documented by: Hydroxyzine HCl (Hydroxyzine Hcl 25 Mg Tablet) 25 mg PO BEDTIME PRN PRN Reason: Anxiety Last Admin: 01/17/22 03:52 Dose: 25 mg Documented by: Ibuprofen (Ibuprofen 600 Mg Tablet) 600 mg PO Q6H PRN PRN Reason: Pain, Moderate (Pain Scale 4-6 Last Admin: 01/17/22 03:52 Dose: 600 mg Documented by: Magnesium Hydroxide (Milk Of Magnesia 30 Ml Oral.Susp) 30 ml PO DAILY PRN PRN Reason: Constipation Last Admin: 01/15/22 22:31 Dose: 30 ml Documented by: Methadone HCl (Methadone Hcl 20 Mg/2 Ml Oral.Conc) 290 mg PO DAILY [facility] Last Admin: 01/17/22 09:05 Dose: 290 mg Documented by: Nicotine (Nicotine 21 Mg Patch.Td24) 21 mg TRANSDERMA DAILY [facility] Last Admin: 01/17/22 08:36 Dose: 21 mg Documented by: Nicotine Polacrilex (Nicotine Polacrilex 2 Mg Gum) 4 mg BUCCAL Q2H PRN PRN Reason: Nicotine Cravings Last Admin: 01/17/22 13:23 Dose: 4 mg Documented by: Oxcarbazepine (Oxcarbazepine 300 Mg Tablet) 600 mg PO BID [facility] Last Admin: 01/17/22 08:35 Dose: 600 mg Documented by: Prazosin HCl (Prazosin Hcl 1 Mg Capsule) 2 mg PO BEDTIME [facility]; Protocol Last Admin: 01/16/22 20:30 Dose: 2 mg Documented by: Quetiapine Fumarate (Quetiapine Fumarate 50 Mg Tablet) 50 mg PO BEDTIME [facility] Last Admin: 01/16/22 20:31 Dose: 50 mg Documented by: Senna/Docusate Sodium (Sennosides/Docusate Sodium Tablet) 2 tab PO BEDTIME [facility] Last Admin: 01/16/22 20:30 Dose: 2 tab Documented by: Trazodone HCl (Trazodone Hcl 50 Mg Tablet) 50 mg PO BEDTIME PRN PRN Reason: Insomnia Valacyclovir HCl (Valacyclovir Hcl 500 Mg Tablet) 500 mg PO DAILY [facility] Last Admin: 01/17/22 08:36 Dose: 500 mg Documented by: Allergies Allergies Allergy/AdvReac Type Severity Reaction Status Date / Time indomethacin [INDOMETHACIN] Allergy Severe Anaphylaxis Verified 01/16/22 22:48 codeine [CODEINE] Allergy Unknown Hives Verified 01/16/22 22:48 Iodinated Contrast Media Allergy Unknown Hives Verified 01/16/22 22:48 [CONTRAST, IV] Assessment & Plan Assessment & Plan (1) MDD (major depressive disorder), recurrent episode, moderate: Status: Acute Code(s): F33.1 - Major depressive disorder, recurrent, moderate (2) Opioid use disorder, moderate, dependence: Status: Acute Code(s): F11.20 - Opioid dependence, uncomplicated Plan Mr. Hankins is a 41 year-old male with hx of MDD, opioid use in early remission on methadone who self presented to [facility] reporting increase depressed mood, SI with plan to OD in setting of multiple psychosocial stressors including legal issues on probation, unstable living situation, worried about relapsing or losing job. Utox negative for opiates and cocaine at [facility] [place], no utox done for fentanyl, which pt denies recent use. PLAN 1. Admit to M3, CV, 15 mins checks 2. increase cymbalta to 60mg po daily, increase gabapentin to 1200mg po TID (monitor sedation), increase prazosin 2mg po qhs 3. obtain collateral information 4. Aftercare planning. I spent _20 minutes with the patient and/or on the patient floor today, greater than?50% of which was spent counseling/coordinating care. Reason for contiued inpatient stay Substantial Risk for: inability to function, rapid decompensation and med/psych decompensation
[2022-01-17 19:58] VITALS: BP 140/81; PULSE 80; RESP 16; TEMP 36.3; O2SAT 97
[2022-01-17] MEDS: Sennosides/Docusate Sodium TABLET 2 TAB PO (20:03)
[2022-01-17] MEDS: QUEtiapine Fumarate 50 MG TABLET PO (20:04)
[2022-01-17] MEDS: Prazosin HCL 1 MG CAPSULE 2 MG PO (20:05)
[2022-01-18] MEDS: traZODone HCL 50 MG TABLET PO (01:14)
[2022-01-18] MEDS: hydrOXYzine HCL 25 MG TABLET PO (01:14)
[2022-01-18 08:00] VITALS: BP 142/83; PULSE 117; RESP 16; TEMP 36.6; O2SAT 95
[2022-01-18] MEDS: DULoxetine HCl 60 MG CAPSULE.DR PO (08:16)
[2022-01-18] MEDS: Nicotine 21 MG PATCH.TD24 TRANSDERMA (08:16)
[2022-01-18] MEDS: OXcarbazepine 300 MG TABLET 600 MG PO ×2 (08:16→21:25)
[2022-01-18] MEDS: busPIRone HCl 5 MG TABLET 15 MG PO (08:16)
[2022-01-18] MEDS: methADONE HCl 20 MG/2 ML ORAL.CONC 290 MG PO (08:17)
[2022-01-18] MEDS: valACYclovir HCL 500 MG TABLET PO (08:17)
[2022-01-18] MEDS: Gabapentin 400 MG CAPSULE 1200 MG PO ×3 (08:17→21:23)
[2022-01-18] MEDS: diazePAM 5 MG TABLET 10 MG PO ×3 (08:29→21:35)
[2022-01-18] MEDS: Nicotine Polacrilex 2 MG GUM 4 MG BUCCAL ×5 (08:29→21:23)
[2022-01-18 10:22] VITALS: PULSE 88
--- NOTE | 2022-01-18 12:50 | P.PNPSI_ITS ---
Subjective Subjective Date of Service: 01/18/22 Reason For Visit: depressive disorder Interim History: The nursing staff reported the patient attendant art group yesterday, today in the morning, he was stating he was going home today. He has been social and pleasant. On interview, the patient stated that he is having panic attacks and anxiety but he looks over-sedated. He advocated for more Valium but a stating that he is on a huge dose and on top of that he is on a very high dose of methadone. We discussed risks, benefits side and he agreed to increase BuSpar up to 20 mg p.o. t.i.d. Mental Status Exam Mental Status Exam Patient Appearance: Well Grooomed Patient Orientation: Person Level of Consciousness: Awake Mood Description: Withdrawn Affect Description: Constricted Patient Cognition Impaired: No Ability to Follow Directions: Good Speech Pattern: Clear Hallucinations: None Delusions: Not Present Thought Content: positive for Linear Judgement: Fair Diagnostics Vital Signs (24Hr): Vital Signs - 24 hr 01/17/22 19:58 01/18/22 08:00 01/18/22 10:22 Temperature 97.4 F 97.8 F Pulse Rate 80 117 H 88 Respiratory Rate 16 16 Blood Pressure 140/81 H 142/83 H Pulse Oximetry 97 95 BMI result Body Mass Index 42.4 Labs Results: 01/14/22 07:34 Medications Medications Current Medications Al Hydroxide/Mg Hydroxide (Magnesium Hydrox/Alum Hydrox 30 Ml Oral.Susp) 30 ml PO Q6H PRN PRN Reason: Heartburn/Nausea Last Admin: 01/15/22 17:45 Dose: 30 ml Documented by: Albuterol Sulfate (Albuterol Sulfate 90 Mcg 8 Gm Inhaler) 2 puff INHALE Q4H PRN PRN Reason: Shortness of Breath Benzocaine (Benzocaine 20 % Oral Gel 9 Gm Tube) 1 appl MUCOUS MEM QID PRN; Protocol PRN Reason: dental pain Last Admin: 01/17/22 03:52 Dose: 1 appl Documented by: Buspirone HCl (Buspirone Hcl 5 Mg Tablet) 15 mg PO TID [facility] Last Admin: 01/18/22 08:16 Dose: 15 mg Documented by: Diazepam (Diazepam 5 Mg Tablet) 10 mg PO TID PRN PRN Reason: Anxiety Last Admin: 01/18/22 08:29 Dose: 10 mg Documented by: Duloxetine HCl (Duloxetine Hcl 60 Mg Capsule.Dr) 60 mg PO DAILY [facility] Last Admin: 01/18/22 08:16 Dose: 60 mg Documented by: Gabapentin (Gabapentin 400 Mg Capsule) 1,200 mg PO TID [facility] Last Admin: 01/18/22 08:17 Dose: 1,200 mg Documented by: Hydroxyzine HCl (Hydroxyzine Hcl 25 Mg Tablet) 25 mg PO BEDTIME PRN PRN Reason: Anxiety Last Admin: 01/18/22 01:14 Dose: 25 mg Documented by: Ibuprofen (Ibuprofen 600 Mg Tablet) 600 mg PO Q6H PRN PRN Reason: Pain, Moderate (Pain Scale 4-6 Last Admin: 01/17/22 03:52 Dose: 600 mg Documented by: Magnesium Hydroxide (Milk Of Magnesia 30 Ml Oral.Susp) 30 ml PO DAILY PRN PRN Reason: Constipation Last Admin: 01/15/22 22:31 Dose: 30 ml Documented by: Methadone HCl (Methadone Hcl 20 Mg/2 Ml Oral.Conc) 290 mg PO DAILY [facility] Last Admin: 01/18/22 08:17 Dose: 290 mg Documented by: Nicotine (Nicotine 21 Mg Patch.Td24) 21 mg TRANSDERMA DAILY [facility] Last Admin: 01/18/22 08:16 Dose: 21 mg Documented by: Nicotine Polacrilex (Nicotine Polacrilex 2 Mg Gum) 4 mg BUCCAL Q2H PRN PRN Reason: Nicotine Cravings Last Admin: 01/18/22 09:57 Dose: 4 mg Documented by: Oxcarbazepine (Oxcarbazepine 300 Mg Tablet) 600 mg PO BID [facility] Last Admin: 01/18/22 08:16 Dose: 600 mg Documented by: Prazosin HCl (Prazosin Hcl 1 Mg Capsule) 2 mg PO BEDTIME [facility]; Protocol Last Admin: 01/17/22 20:05 Dose: 2 mg Documented by: Quetiapine Fumarate (Quetiapine Fumarate 50 Mg Tablet) 50 mg PO BEDTIME [facility] Last Admin: 01/17/22 20:04 Dose: 50 mg Documented by: Senna/Docusate Sodium (Sennosides/Docusate Sodium Tablet) 2 tab PO BEDTIME [facility] Last Admin: 01/17/22 20:03 Dose: 2 tab Documented by: Trazodone HCl (Trazodone Hcl 50 Mg Tablet) 50 mg PO BEDTIME PRN PRN Reason: Insomnia Last Admin: 01/18/22 01:14 Dose: 50 mg Documented by: Valacyclovir HCl (Valacyclovir Hcl 500 Mg Tablet) 500 mg PO DAILY [facility] Last Admin: 01/18/22 08:17 Dose: 500 mg Documented by: Allergies Allergies Allergy/AdvReac Type Severity Reaction Status Date / Time indomethacin [INDOMETHACIN] Allergy Severe Anaphylaxis Verified 01/16/22 22:48 codeine [CODEINE] Allergy Unknown Hives Verified 01/16/22 22:48 Iodinated Contrast Media Allergy Unknown Hives Verified 01/16/22 22:48 [CONTRAST, IV] Assessment & Plan Assessment & Plan (1) MDD (major depressive disorder), recurrent episode, moderate: Status: Acute Code(s): F33.1 - Major depressive disorder, recurrent, moderate (2) Opioid use disorder, moderate, dependence: Status: Acute Code(s): F11.20 - Opioid dependence, uncomplicated Plan Mr. Hankins is a 41 year-old male with hx of MDD, opioid use in early remission on methadone who self presented to [facility] reporting increase depressed mood, SI with plan to OD in setting of multiple psychosocial stressors including legal issues on probation, unstable living situation, worried about relapsing or losing job. [place] [facility] [place]ox done for fentanyl, which pt denies recent use. PLAN 1. Admit to M3, CV, 15 mins checks 2. increase cymbalta to 60mg po daily, increase gabapentin to 1200mg po TID (monitor sedation), increase prazosin 2mg po qhs 3. obtain collateral information 4. Aftercare planning. 5. Increase Buspar up to 20 mg po tid I spent __20____ minutes with the patient and/or on the patient floor today, greater than?50% of which was spent counseling/coordinating care. Reason for contiued inpatient stay Substantial Risk for: inability to function, rapid decompensation and med/psych decompensation
[2022-01-18] MEDS: busPIRone HCl 10 MG TABLET 20 MG PO ×2 (15:42→21:24)
[2022-01-18 18:00] VITALS: BP 130/62; PULSE 89; RESP 18; O2SAT 95
[2022-01-18] MEDS: Sennosides/Docusate Sodium TABLET 2 TAB PO (21:25)
[2022-01-18] MEDS: QUEtiapine Fumarate 50 MG TABLET PO (21:25)
[2022-01-18] MEDS: Prazosin HCL 1 MG CAPSULE 2 MG PO (21:25)
[2022-01-18] MEDS: Ibuprofen 600 MG TABLET PO (21:35)
[2022-01-19] MEDS: methADONE HCl 20 MG/2 ML ORAL.CONC 290 MG PO (08:16)
[2022-01-19] MEDS: Gabapentin 400 MG CAPSULE 1200 MG PO (08:21)
[2022-01-19] MEDS: valACYclovir HCL 500 MG TABLET PO (08:21)
[2022-01-19] MEDS: OXcarbazepine 300 MG TABLET 600 MG PO (08:21)
[2022-01-19] MEDS: busPIRone HCl 10 MG TABLET 20 MG PO (08:21)
[2022-01-19] MEDS: Nicotine 21 MG PATCH.TD24 TRANSDERMA (08:21)
[2022-01-19] MEDS: Nicotine Polacrilex 2 MG GUM 4 MG BUCCAL (08:24)
[2022-01-19] MEDS: diazePAM 5 MG TABLET 10 MG PO (08:24)
[2022-01-19] MEDS: DULoxetine HCl 60 MG CAPSULE.DR PO (08:24)
--- NOTE | 2022-01-19 09:55 | P.DS_ITS ---
DS: Providers Provider Date of Service: 01/19/22 Date of admission: 01/13/22 19:29 Primary care physician: Unknown Physician Consults: 01/13/22 10:58 Consult to Hospitalist Routine Consulting Provider: Hospitalist Reason For Exam: Admitted to inpatient psych DS: Diagnosis Discharge Diagnosis (1) MDD (major depressive disorder), recurrent episode, moderate: Status: Acute (2) Opioid use disorder, moderate, dependence: Status: Acute DS: Medications Discharge Medications Home Medications: Home Medications Medication Instructions Recorded Confirmed methadone 10 mg tablet 290 mg PO DAILY 09/22/21 01/13/22 ProAir HFA 2 puff INHALATION Q4H PRN 01/13/22 01/14/22 diazepam 10 mg tablet 1 tab PO TID PRN 01/13/22 01/14/22 valacyclovir 500 mg tablet 500 mg PO DAILY 01/13/22 01/13/22 (Valtrex) Previous Rx's Medication Instructions Recorded buspirone 10 mg tablet 20 mg PO TID #120 tab 01/19/22 duloxetine 60 mg capsule,delayed 60 mg PO DAILY #30 cap 01/19/22 release gabapentin 400 mg capsule 1,200 mg PO TID #126 cap 01/19/22 nicotine (polacrilex) 2 mg gum 4 mg BUCCAL Q2H PRN #60 ea 01/19/22 nicotine 21 mg/24 hr daily 21 mg TRANSDERMAL DAILY #30 ea 01/19/22 transdermal patch oxcarbazepine 300 mg tablet 600 mg PO BID #120 tab 01/19/22 prazosin 1 mg capsule 2 mg PO BEDTIME #60 cap 01/19/22 quetiapine 50 mg tablet 50 mg PO BEDTIME #30 tab 01/19/22 sennosides 8.6 mg-docusate sodium 2 tab PO BEDTIME #60 tab 01/19/22 50 mg tablet (Senna Plus) Mental Status Exam Mental Status Exam Patient Appearance: Well Grooomed Patient Orientation: Person, Place, Time and Situation Level of Consciousness: Appropriate Patient Behavior: Appropriate Mood Description: Calm and Appropriate Affect Description: Calm and Appropriate Patient Cognition Impaired: No Ability to Follow Directions: Excellent Speech Pattern: Clear, Appropriate, Spontaneous Speech and Coherent Hallucinations: None Delusions: Not Present Thought Process: Intact Thought Content: positive for Intact Data Data Completed and Pending Completed studies during hospitalization [Text1]: 01/14/22 01/15/22 07:34 02:09 Sodium 138 Potassium 4.6 Chloride 105 Carbon Dioxide 26 Anion Gap 12 BUN 17 H Creatinine 0.78 Estim Creat Clear Calc 183.3 Estimated GFR > 60 Fasting Glucose 90 Calcium 9.2 Total Bilirubin 0.4 AST 27 ALT 29 Alkaline Phosphatase 84 Total Protein 6.7 Albumin 3.8 Triglycerides 81 Cholesterol 149 LDL Cholesterol, Calc 86 HDL Cholesterol 47 Urine Opiates Screen Not Detected Urine Fentanyl Screen Not Detected Ur Barbiturates Screen Not Detected Ur Phencyclidine Scrn Not Detected Ur Amphetamines Screen Not Detected U Benzodiazepines Scrn POSITIVE H Urine Cocaine Screen Not Detected U Marijuana (THC) Screen Not Detected DS: Summary Hospital Course Hospital Course: HPI: Mr. Hankins is a 41 year-old male with hx of MDD, opioid use disorder in early remission on methadone, who self presented to [facility] ED reporting increased depressed mood, SI in setting of multiple stressors including limited social supports and communication with mother, legal concerns on probation. In the ED utox was negative for opioids and cocaine. No other substances tested. On the unit, Mr. Hankins presents as pleasant. 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 Pt reports more periods of sobriety in the past 2 years. He reports he stayed at [facility] back in 2019 and has continued on methadone. Pt reports he has been experiencing more depressed mood, anhedonia in the past month. He reports worrying about relapse and ongoing to substance use treatment. Pt reports he would like to be in sober house. He reports passive SI. He reports sleep and appetite are good. Past Psychiatric History: Inpatient: more than 14 since 2018. Most recent one [facility] 08/04/2021.? OP: PCP prescribing, no therapist.? Past medication trials: cymbalta, gabapentin, seroquel, trileptal, trazodone Medical Evaluation Reviewed: Hospitalist Ariel Pending HOSPITAL COURSE On the unit, Mr. Hankins was admitted on a CV and placed on 15 minutes checks for safety. Pt has been more stable in terms of recovery in that he has had longer periods of sobriety. He reports relapsed but willing to continue residential substance use treatment. We discussed risks, benefits and alternative treatment options. Pt agreed to continue cymbalta for depression. He was continued on methadone and gabapentin was increased for anxious mood. His affect gradually presented as brighter. He reported sleeping and eating well. He attended assigned groups. He was social with select peers. There were no incidences of disruptive behaviors nor use of restraints. Status at Discharge Cognitive/behavioral status at discharge: Pt presents with brighter affect, non labile. No SI/HI. No VH/AH. No delusional content noted or reported. Increase insight into need for going dual diagnosis treatment. Harm reduction discussed- given narcan prior to discharge. No signs of aggression towards self or others. Functional status at discharge: independent ambulation Overall status at discharge: patient is progressing back to baseline Time Spent with Patient Time attestation: Total time spent providing and/or coordinating discharge services: Time spent: Greater than 30 minutes Discharge Plan Discharge Patient Disposition: Home, Self-Care Discharge Diagnosis: MDD, recurrent, moderate Opioid Use Disorder Referrals: Center,[facility] [Physician] - 1 Week Discharge Medications: New nicotine (polacrilex) 2 mg Gum 4 mg buccal Q2H PRN (Reason: Nicotine Cravings) Qty: 60 0RF prazosin 1 mg Capsule 2 mg PO BEDTIME Qty: 60 0RF Protocol: Hold for SBP< HOLD for SBP < : 90 gabapentin 400 mg Capsule 1,200 mg PO TID Qty: 126 0RF oxcarbazepine 300 mg Tablet 600 mg PO BID Qty: 120 0RF buspirone 10 mg Tablet 20 mg PO TID Qty: 120 0RF nicotine 21 mg/24 hr Patch 24 Hour 21 mg transdermal DAILY Qty: 30 0RF sennosides-docusate sodium [Senna Plus] 8.6-50 mg Tablet 2 tab PO BEDTIME Qty: 60 0RF duloxetine 60 mg Capsule,Delayed Release(Dr/Ec) 60 mg PO DAILY Qty: 30 0RF quetiapine 50 mg Tablet 50 mg PO BEDTIME Qty: 30 0RF Continued methadone 10 mg Tablet 290 mg PO DAILY 0RF valacyclovir [Valtrex] 500 mg Tablet 500 mg PO DAILY 0RF diazepam 10 mg tablet 1 tab PO TID PRN (Reason: Anxiety) 0RF ProAir HFA 2 puff inhalation Q4H PRN (Reason: Shortness Of Breath) 0RF Discontinued gabapentin 800 mg tablet 1 tab PO TID 0RF buspirone 15 mg tablet 1 tab PO TID 0RF prazosin 1 mg Capsule 1 mg PO BEDTIME 0RF oxcarbazepine [Trileptal] 600 mg Tablet 600 mg PO BID 0RF nicotine (polacrilex) 2 mg Gum 4 mg BUCCAL Q2H PRN (Reason: Nicotine Cravings) 0RF duloxetine [Cymbalta] 30 mg Capsule,Delayed Release(Dr/Ec) 30 mg PO DAILY 0RF quetiapine 50 mg Tablet 50 mg PO DAILY PRN (Reason: Anxiety) 0RF Discharge Orders: Discharge Order (Routine); Ordered 01/19/22 Ordered By: Sharmila Lehman Diet: regular diet Activity on Discharge: As tolerated Stand Alone Forms: Patient Portal Discharge page, Community Support Care Plan Goals: maintain mood no si/hi harm reduction- narcan take home Health Concerns: follow up with PCP Plan of Treatment: take medications as prescribed go to nearest ED or call 911 in event of emergency Assessment: Pt with bright affect, future oriented. No SI/HI. Harm reduction discussed- given narcan on discharge. Discharge Date/Time: 01/19/22 11:31
== END 2022-01-19 11:31 | disposition home or self-care (01) | DRG 751 ==
PROVIDERS: Psychiatry & Neurology Psychiatry; Admitting Provider Psychiatry & Neurology Psychiatry; Visit Provider Social Worker
DX: F33.1 Major depressive disorder, recurrent, moderate (principal); R45.851 Suicidal ideations; G35 Multiple sclerosis; F11.20 Opioid dependence, uncomplicated; G89.29 Other chronic pain; F17.210 Nicotine dependence, cigarettes, uncomplicated; Z87.891 Personal history of nicotine dependence; Z56.89 Other problems related to employment; Z71.6 Tobacco abuse counseling; Z88.5 Allergy status to narcotic agent; Z79.899 Other long term (current) drug therapy
CPT/HCPCS: 36415; 80053; 80061; 80307

== ENCOUNTER 2022-04-30 10:00 | Outpatient (RCR) | payer OTHER, SELFPAY ==
--- NOTE | 2022-04-30 10:44 | PM.EVENT ---
Event Note Date of Service: 04/30/22 Event Note: This commercial insurance underwriter and operating systems programmer Isabella Grey called patient to discuss his decision not to sign release of information with [facility] clinic. He stated that he will not sign release at this time. Patient was informed that without release signed for outside providers, he cannot continue in this program. He stated that he does not intend to sign the release. He also reported that he is not finding the program helpful due to online format, and would prefer to go to [facility]. He stated the he needs a provider referral, and his pcp has refused to give him one. I suggested he ask Dr. Eldridge, his provider at [facility], for a referral to [facility]. He stated that he had not done that, but will call her to request one.
== END 2022-05-01 23:59 | disposition home or self-care (01) ==
LOC: HO.PHPA 10:00
PROVIDERS: Visit Provider Psychiatry & Neurology Psychiatry
DX: F31.32 Bipolar disorder, current episode depressed, moderate (principal); F43.12 Post-traumatic stress disorder, chronic; F41.1 Generalized anxiety disorder; F11.20 Opioid dependence, uncomplicated
CPT/HCPCS: 90791; 90853

== ENCOUNTER 2022-09-18 20:03 | Inpatient (IN) | payer MEDICAID, OTHER, SELFPAY ==
[2022-09-18 20:35] VITALS: BMI 43.7
--- NOTE | 2022-09-18 20:49 | ED.PSYCH ---
HPI - Psych General Chief Complaint: Psychiatric Symptoms Stated Complaint: SI Time Seen by Provider: 09/18/22 20:34 Source: patient Mode of arrival: ambulatory Limitations: no limitations History of Present Illness HPI Narrative: 42-year-old male with a history of opiate use disorder on methadone, depression presents with reports of suicidal thoughts over the last few days with plan to cut his wrist, feeling depressed, feeling paranoid. No homicidal ideations. Patient intermittently uses fentanyl and cocaine. No physical complaints MD complaint: suicidal ideation and feels depressed Related Data Home Medications Medication Instructions Recorded Confirmed methadone 10 mg tablet 290 mg PO DAILY 09/22/21 01/13/22 ProAir HFA 2 puff inhalation Q4H PRN 01/13/22 09/18/22 Shortness Of Breath diazepam 10 mg tablet 1 tab PO TID PRN Anxiety 01/13/22 09/18/22 valacyclovir 500 mg tablet 500 mg PO DAILY 01/13/22 01/13/22 (Valtrex) quetiapine 50 mg tablet (Seroquel) See Rx Instructions .Route .COMPLEX 09/18/22 Previous Rx's Medication Instructions Recorded buspirone 10 mg tablet 20 mg PO TID #120 tabs 01/19/22 duloxetine 60 mg capsule,delayed 60 mg PO DAILY #30 caps 01/19/22 release gabapentin 400 mg capsule 1,200 mg PO TID #126 caps 01/19/22 nicotine (polacrilex) 2 mg gum 4 mg buccal Q2H PRN Nicotine 01/19/22 Cravings #60 ea nicotine 21 mg/24 hr daily 21 mg transdermal DAILY #30 ea 01/19/22 transdermal patch oxcarbazepine 300 mg tablet 600 mg PO BID #120 tabs 01/19/22 prazosin 1 mg capsule 2 mg PO BEDTIME #60 caps 01/19/22 sennosides 8.6 mg-docusate sodium 2 tab PO BEDTIME #60 tabs 01/19/22 50 mg tablet (Senna Plus) Allergies Allergy/AdvReac Type Severity Reaction Status Date / Time indomethacin [INDOMETHACIN] Allergy Severe Anaphylaxis Verified 01/16/22 22:48 codeine [CODEINE] Allergy Unknown Hives Verified 01/16/22 22:48 Iodinated Contrast Media Allergy Unknown Hives Verified 01/16/22 22:48 [CONTRAST, IV] Review of Systems Review of Systems: Yes all other systems are reviewed and are negative Constitutional: Constitutional: Reports no additional constitutional complaints, Denies body ache(s), Denies chills, Denies fever(s), Denies headache(s) and Denies weakness Eyes: Eyes: Reports no additional eye complaints and Denies change in vision ENT: Reports system reviewed and no additional complaints, except as documented, Denies dizziness, Denies headache(s), Denies nasal congestion, Denies nasal discharge and Denies neck pain Cardiovascular: Cardiovascular: Reports no additional cardiovascular complaints, Denies chest pain, Denies leg edema and Denies dyspnea Respiratory: Respiratory: Reports no additional respiratory complaints, Denies cough and Denies dyspnea Gastrointestinal: Gastrointestinal: Reports no additional gastrointestinal complaints, Denies abdominal pain, Denies diarrhea, Denies nausea and Denies vomiting Genitourinary: Genitourinary: Denies urinary incontinence Musculoskeletal: Musculoskeletal: Reports no additional musculoskeletal complaints, Denies back pain, Denies arthralgias, Denies joint swelling, Denies neck pain, Denies numbness and Denies tingling Integumentary/Breasts: Skin/Breast: Reports system reviewed and no additional complaints, except as docu and Denies rash Neurologic: Reports system reviewed and no additional complaints, except as documented, Denies Abnormal speech present, Denies dizziness, Denies headache(s), Denies numbness, Denies tingling and Denies weakness Psychiatric: Psychiatric: Reports depression and Reports suicidal ideation [facility] Past Medical History Attestation statement: The following information was validated with the patient. Source: old records reviewed and nursing notes reviewed Medical History Methadone dependence Social History Social History Household Members: Significant Other Housing: Homeless Do you presently have visiting nurse or other home services: No Patient Tobacco Use Status: Current someday Tobacco user Tobacco use type: Cigarette e-Cigarette/Vaping Use: Never Used Second Hand Smoke Exposure: Yes Advance Directives: No Advance Directives Information Provided: No service: No Sexual orientation: Straight/Heterosexual Physical Exam Vital Signs: Vital Signs: Last Vital Signs Temp 99.7 F 09/18/22 21:43 Pulse 93 09/18/22 21:43 Resp 17 09/18/22 21:43 BP 148/90 H 09/18/22 21:43 Pulse Ox 96 09/18/22 21:43 O2 Del Method 09/18/22 21:43 BMI result Body Mass Index 43.7 Const: General: cooperative, healthy appearing, comfortable and no acute distress Orientation/consciousness: patient oriented x3 Limitations: no limitations HEENT: Head: Yes normal to inspection Ears: hearing grossly normal bilaterally General nose exam: Normal external nose present Face and sinus: Yes normal facial exam Mouth: Normal oral and palatal mucosa present Throat: Yes posterior oropharynx normal Eyes: General: appearance normal, both eyes and all related structures Pupils: Equal, round and reactive pupils present Neck: Neck: Yes normal visual inspection Chest: Chest palpation & inspection: normal inspection of the chest Resp: Effort & Inspection: normal respiratory effort Auscultation: clear to auscultation bilaterally Cardio: Rate: regular rate Rhythm: regular rhythm Peripheral pulses: Peripheral pulses 2+ throughout GI: Inspection: Yes normal to inspection Palpation (GI): Soft to palpation and nontender Auscultation: normal bowel sounds Back/Spine/Pelvis: Thoracic/Lumbar Spine: thoracic and lumbar spine normal to inspection Skin: General skin exam: no rashes or lesions noted Neuro: General: patient oriented x3, no focal motor deficits and normal sensation to monofilament Cranial nerves: Yes CN's II-XII intact bilaterally and Yes Equal, round and reactive pupils present Cognition (Neuro): normal cognition Speech: No Abnormal speech present Gait exam (Neuro): Normal gait present Motor exam (neuro): 5/5 motor strength present throughout Extrem: General: Yes normal to inspection Course Course Course Narrative: At this time patient is cleared to be seen by crisis. Patient with multiple medications with high doses with nursing unable to verify with his pharmacy arm methadone clinic. Therefore his medications will be reconciled in the morning when we are able to get some collateral information. Patient placed in physician observation pending a crisis evaluation MDM - Psych MDM Narrative Medical decision making narrative: 42-year-old male here with suicidal thoughts, feeling depressed. No concern for acute ingestion or trauma. No physical complaints. Will need labs, drug screen, COVID screen, crisis evaluation Medical Records Attestation: I reviewed the patient's medical records. Lab Data Attestation: I reviewed the patient's lab results. Result diagrams: 09/18/22 22:06 09/18/22 22:06 Labs: Lab Results 09/18/22 09/18/22 09/18/22 Range/Units 20:44 22:06 22:06 WBC 8.2 (4.8-10.8) X10*3/uL RBC 4.18 L (4.60-5.80) X10*6/uL Hgb 12.3 L (14.0-18.0) g/dl Hct 36.8 L (42.0-52.0) % MCV 88.0 (80.0-98.0) fL MCH 29.4 (27.0-33.0) pg MCHC 33.4 (31.0-36.0) g/dl RDW 13.2 (11.0-16.0) % Plt Count 320 (160-400) X10*3/uL MPV 9.1 L (9.4-12.4) fL Immature Gran % (Auto) 0.2 (0.0-0.4) % Neut % (Auto) 54.9 (45-73) % Lymph % (Auto) 34.1 (20-40) % [place] % (Auto) 8.5 (2-11) % Eos % (Auto) 2.2 (0-4) % Baso % (Auto) 0.1 (0-2) % Lymph # (Auto) 2.8 (1.2-4.9) X10*3/uL [place] # (Auto) 0.7 (0.1-1.2) X10*3/uL Eos # (Auto) 0.2 (0.0-0.4) X10*3/uL Baso # (Auto) 0.0 (0.0-0.2) X10*3/uL Abs Immat Gran (auto) 0.02 (0.00-0.03) X10*3/uL Absolute Neuts (auto) 4.5 (2.0-8.3) x10*3/uL Absolute Nucleated RBC 0.000 (0.0-0.012) X10*3/uL Nucleated RBC % (auto) 0.0 (0.0-0.2) /100WBC Sodium 140 (135-145) mmol/L Potassium 4.3 (3.3-5.1) mmol/L Chloride 104 (96-108) mmol/L Carbon Dioxide 25 (22-29) mmol/L Anion Gap 15 (12-20) BUN 14 (9-16) mg/dL Creatinine 0.78 (0.5-1.4) mg/dL Estim Creat Clear Calc 203.3 Estimated GFR > 60 Random Glucose 89 (60-115) mg/dL Calcium 9.2 (8.4-10.2) mg/dL Total Bilirubin 0.3 (0.0-1.0) mg/dL Direct Bilirubin 0.2 (0.0-0.5) mg/dL AST 34 (5-37) U/L ALT 30 (0-40) U/L Alkaline Phosphatase 106 D (39-117) U/L Total Protein 7.6 (6.5-8.0) g/dL Albumin 4.3 (3.5-5.0) g/dL Ethyl Alcohol < 10 mg/dL COVID-19 ([facility]ILEE) Negative (Negative) COVID-19 Clin Com See Note Discharge Plan Discharge Clinical Impression: Suicidal ideation Patient Disposition: Still a Patient Prescriptions: No Action methadone 10 mg Tablet 290 mg PO DAILY Rx Instructions: increase in dose to 320mg. clinic is [facility] valacyclovir [Valtrex] 500 mg Tablet 500 mg PO DAILY diazepam 10 mg tablet 1 tab PO TID PRN (Reason: Anxiety) ProAir HFA 2 puff inhalation Q4H PRN (Reason: Shortness Of Breath) nicotine (polacrilex) 2 mg Gum 4 mg buccal Q2H PRN (Reason: Nicotine Cravings) Qty: 60 0RF prazosin 1 mg Capsule 2 mg PO BEDTIME Qty: 60 0RF Protocol: Hold for SBP< HOLD for SBP < : 90 gabapentin 400 mg Capsule 1,200 mg PO TID Qty: 126 0RF oxcarbazepine 300 mg Tablet 600 mg PO BID Qty: 120 0RF buspirone 10 mg Tablet 20 mg PO TID Qty: 120 0RF nicotine 21 mg/24 hr Patch 24 Hour 21 mg transdermal DAILY Qty: 30 0RF sennosides-docusate sodium [Senna Plus] 8.6-50 mg Tablet 2 tab PO BEDTIME Qty: 60 0RF duloxetine 60 mg Capsule,Delayed Release(Dr/Ec) 60 mg PO DAILY Qty: 30 0RF quetiapine [Seroquel] 50 mg tablet See Rx Instructions .ROUTE .COMPLEX Rx Instructions: patient states he takes 350mg daily at bedtime Interventions: [place]-Suicide Risk Severity Scale Last Done: 09/18/22 21:36
[2022-09-18 21:03] LABS: COVID-19 Test Negative (Negative)
[2022-09-18 21:43] VITALS: BP 148/90; PULSE 93; RESP 17; TEMP 37.6; O2SAT 96
[2022-09-18 22:12] LABS: MANUAL DIFF FLAG NO
[2022-09-18 22:13] LABS: Basophils Percent Auto 0.1 % (0-2); Eosinophils Absolute Auto 0.2 X10*3/uL (0.0-0.4); Eosinophils Percent Auto 2.2 % (0-4); Hematocrit 36.8 % (42.0-52.0); Hemoglobin 12.3 g/dl (14.0-18.0); Imm Gran Abs Auto 0.02 X10*3/uL (0.00-0.03); Imm Gran Pct Auto 0.2 % (0.0-0.4); Lymphocytes Absolute Auto 2.8 X10*3/uL (1.2-4.9); Lymphocytes Percent Auto 34.1 % (20-40); Mean Corpuscular HGB Conc 33.4 g/dl (31.0-36.0); Mean Corpuscular Hemoglobin 29.4 pg (27.0-33.0); Mean Platelet Volume 9.1 fL (9.4-12.4); Monocytes Absolute Auto 0.7 X10*3/uL (0.1-1.2); Monocytes Percent Auto 8.5 % (2-11); Neutrophils Absolute Auto 4.5 x10*3/uL (2.0-8.3); Neutrophils Percent Auto 54.9 % (45-73); Platelet Count 320 X10*3/uL (160-400); Red Blood Count 4.18 X10*6/uL (4.60-5.80); Red Cell Distribution Width 13.2 % (11.0-16.0); White Blood Count 8.2 X10*3/uL (4.8-10.8)
[2022-09-18 22:30] LABS: Alanine Aminotransferase 30 U/L (0-40); Albumin Level 4.3 g/dL (3.5-5.0); Alkaline Phosphatase 106 U/L (39-117); Anion Gap 15 (12-20); Aspartate Amino Transferase 34 U/L (5-37); Bilirubin Direct 0.2 mg/dL (0.0-0.5); Bilirubin Total 0.3 mg/dL (0.0-1.0); Blood Urea Nitrogen 14 mg/dL (9-16); Calcium 9.2 mg/dL (8.4-10.2); Carbon Dioxide 25 mmol/L (22-29); Chloride 104 mmol/L (96-108); Creatinine Clr Calc Pharmacy 203.3; Estimated Glomerular Filt Rate > 60; Ethanol < 10 mg/dL; Glucose Random 89 mg/dL (60-115); Potassium 4.3 mmol/L (3.3-5.1); Sodium 140 mmol/L (135-145); Total Protein 7.6 g/dL (6.5-8.0)
--- NOTE | 2022-09-19 01:05 | MHC.CARE ---
Pt presents to the ED with Si, increased depression and thoughts to cut wrist. Pt reports he feels paranoid and using drugs intermittently. Unknown when last use was. Pt unable to provide urine at this time and sleeping, therefore pt will need to be seen in the morning. Chart review indicates that pt was on M5 on 01/20 due to increased depression, SI to relapse and kill self with substances. Pt was struggling with psychosocial stressors and was help-seeking. 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 Pt discharged to sober living facility when he left unit, unsure what occurred.
--- NOTE | 2022-09-19 01:16 | PC.NURSE ---
patient ambulatory to the bathroom with walker. given warm blankets, [address] for safety.
[2022-09-19 06:35] VITALS: BP 129/77; PULSE 70; RESP 18; TEMP 36.8; O2SAT 95
--- NOTE | 2022-09-19 08:50 | PC.NURSE ---
report taken from manny hobbs, understood from report and documentation that pt came to ed with paranoia and si thoughts, pt was asleep when care team came to eval and they will attempt in am. Understood pt has ms, ambulates with walker and sometimes has to straight cath self for urine. pt is asleep but easily arousable, has not yet eaten breakfast.
--- NOTE | 2022-09-19 09:17 | PC.NURSE ---
Methadone dose confirmed and scanned to pharmacy
[2022-09-19] MEDS: Gabapentin 400 MG CAPSULE 1200 MG PO ×3 (10:21→21:21)
[2022-09-19] MEDS: methADONE HCl 20 MG/2 ML ORAL.CONC 260 MG PO (10:22)
[2022-09-19] MEDS: DULoxetine HCl 60 MG CAPSULE.DR PO (10:22)
[2022-09-19] MEDS: OXcarbazepine 300 MG TABLET 600 MG PO ×2 (10:33→21:20)
--- NOTE | 2022-09-19 12:33 | PHA.MEDREC ---
Pharmacy Consult ? Medication Reconciliation Pharmacy has completed the medication reconciliation.
[2022-09-19] MEDS: Prazosin HCL 1 MG CAPSULE PO (21:20)
[2022-09-19] MEDS: methADONE HCl 20 MG/2 ML ORAL.CONC 60 MG PO (21:21)
[2022-09-19 21:29] VITALS: BP 142/82; PULSE 80; RESP 18; TEMP 36.8; O2SAT 94
--- NOTE | 2022-09-19 21:31 | PC.NURSE ---
Pt received 2100 meds requested water and is eating dinner. Pt is cooperative at this time.
[2022-09-19] MEDS: diazePAM 5 MG TABLET 10 MG PO (22:16)
[2022-09-19] MEDS: Nicotine Polacrilex 2 MG GUM 4 MG BUCCAL (22:16)
[2022-09-19] MEDS: QUEtiapine Fumarate 50 MG TABLET PO (22:17)
[2022-09-19] MEDS: QUEtiapine Fumarate 200 MG TABLET PO (22:17)
[2022-09-19] MEDS: busPIRone HCl 10 MG TABLET PO (22:17)
[2022-09-20 06:11] VITALS: BP 122/54; PULSE 73; RESP 18; TEMP 37.2; O2SAT 93
[2022-09-20] MEDS: Omeprazole 20 MG CAPSULE.DR PO (06:21)
--- NOTE | 2022-09-20 07:59 | PC.NURSE ---
PT SLEEPING, BEDSEARCH CONTINUES.
[2022-09-20] MEDS: OXcarbazepine 300 MG TABLET 600 MG PO ×2 (08:41→21:51)
[2022-09-20] MEDS: Gabapentin 400 MG CAPSULE 1200 MG PO ×3 (08:42→21:51)
[2022-09-20] MEDS: DULoxetine HCl 60 MG CAPSULE.DR PO (08:42)
[2022-09-20] MEDS: busPIRone HCl 10 MG TABLET PO ×3 (08:42→21:52)
[2022-09-20] MEDS: diazePAM 5 MG TABLET 10 MG PO ×2 (09:24→21:58)
[2022-09-20] MEDS: methADONE HCl 20 MG/2 ML ORAL.CONC 260 MG PO (09:25)
[2022-09-20 16:02] VITALS: BP 129/74; PULSE 71; RESP 18; TEMP 36.9; O2SAT 96
--- NOTE | 2022-09-20 20:04 | PC.NURSE ---
Pts jesus, Cee Olivsa, called for an update. Cee reports her sister was involved in a car accident and not doing well and needing support from pt. This nurse advised Cee that pt is sleeping and resting at this time. Tab's contact information will be provided to pt once pt is awake to contact jesus. Cee may be reached at [phone].
[2022-09-20] MEDS: methADONE HCl 20 MG/2 ML ORAL.CONC 60 MG PO (21:51)
[2022-09-20 21:52] VITALS: BP 124/60; PULSE 80; RESP 12; TEMP 37.2; O2SAT 95
[2022-09-20] MEDS: Prazosin HCL 1 MG CAPSULE PO (21:52)
[2022-09-20] MEDS: QUEtiapine Fumarate 200 MG TABLET PO (21:52)
[2022-09-20] MEDS: QUEtiapine Fumarate 50 MG TABLET PO (21:52)
--- NOTE | 2022-09-20 23:51 | PC.NURSE ---
Pt sleeping in no apparent distress. Breaths are even and unlabored with equal chest rises. Will continue to monitor.
--- NOTE | 2022-09-21 04:02 | PC.NURSE ---
Pt sleeping in no apparent distress. Breaths are even and unlabored. Will continue to monitor.
--- NOTE | 2022-09-21 05:55 | PC.NURSE ---
Pt sleeping in no apparent distress. Breaths are even and unlabored. Will continue to monitor.
[2022-09-21] MEDS: methADONE HCl 20 MG/2 ML ORAL.CONC 260 MG PO (08:22)
[2022-09-21] MEDS: DULoxetine HCl 60 MG CAPSULE.DR PO (08:25)
[2022-09-21] MEDS: busPIRone HCl 10 MG TABLET PO ×3 (08:25→19:57)
[2022-09-21] MEDS: Gabapentin 400 MG CAPSULE 1200 MG PO ×3 (08:25→19:56)
[2022-09-21] MEDS: OXcarbazepine 300 MG TABLET 600 MG PO ×2 (08:25→19:56)
[2022-09-21] MEDS: diazePAM 5 MG TABLET 10 MG PO (09:54)
[2022-09-21] MEDS: Nicotine Polacrilex 2 MG GUM 4 MG BUCCAL (09:54)
[2022-09-21 10:03] VITALS: BP 132/77; PULSE 76; RESP 17; TEMP 36.9; O2SAT 92
[2022-09-21 12:27] LABS: Amphetamine Screen Urine Not Detected (Not Detect); Barbiturates, Urine Not Detected (Not Detect); Benzodiazepines Screen Urine POSITIVE (Not Detect); Cannabinoid Screen Urine Not Detected (Not Detect); Cocaine Screen Urine POSITIVE (Not Detect); Fentanyl, urine POSITIVE (Not Detect); Opiate Screen Urine Not Detected (Not Detect); Phencyclidine Screen Urine Not Detected (Not Detect)
--- NOTE | 2022-09-21 12:38 | ECG_ITS ---
Test Reason : cocaine use Blood Pressure : / mmHG Vent. Rate : 073 BPM Atrial Rate : 073 BPM P-R Int : 156 ms QRS Dur : 100 ms QT Int : 436 ms P-R-T Axes : 042 027 043 degrees QTc Int : 480 ms Normal sinus rhythm RSR' or QR pattern in V1 suggests right ventricular conduction delay Otherwise normal ECG When compared with ECG of 15-NOV-2018 14:58, No significant change was found Referred By: Perico Thomas Electronically Signed By:AMADOR GOMEZ MD
[2022-09-21 14:00] VITALS: RESP 16
--- NOTE | 2022-09-21 15:20 | PC.NURSE ---
+ambulated to wheelchair.
[2022-09-21 16:26] VITALS: BMI 41.3
[2022-09-21 16:53] VITALS: BP 114/61; PULSE 75; RESP 16; TEMP 35.9; O2SAT 98
[2022-09-21] MEDS: Prazosin HCL 1 MG CAPSULE PO (19:56)
[2022-09-21] MEDS: QUEtiapine Fumarate 50 MG TABLET PO (19:56)
[2022-09-21] MEDS: methADONE HCl 20 MG/2 ML ORAL.CONC 60 MG PO (19:56)
--- NOTE | 2022-09-21 22:12 | PC.ADMIT ---
Addendum entered by Franki Ramos RN 09/21/22 22:39: Tox screen positive for fentanyl, benzos and cocaine. [facility] current lab results show low RBC, Hgb, Hct. Original Note: Pt is a 42year old male admitted on CV for SI with a plan to cut his wrist open and bleed out. Pt is alert and oriented X4. VSS, Covid negative, tox screen negative. Pt denies HI, endorses SI. Pt reports he smokes 3 packs of cigarette a day, accepted nicotine replacement therapy but refused to take flu shot. Speech is normal with regular rhythm, tone and kali. Eye contact is poor, affect is flat, mood is depressed. Pt reports he had intention of ending his life last night while under the influence. [facility] stated that he relapsed recently due to his family members dying. Pt has impaired insight, judgment and insight. Admission orders obtained.
[2022-09-22 06:00] VITALS: BP 122/74; PULSE 78; RESP 18; TEMP 36.4; O2SAT 96
[2022-09-22] MEDS: Omeprazole 20 MG CAPSULE.DR PO (06:33)
[2022-09-22] MEDS: busPIRone HCl 10 MG TABLET PO ×3 (08:23→21:17)
[2022-09-22] MEDS: Gabapentin 400 MG CAPSULE 1200 MG PO ×3 (08:23→21:17)
[2022-09-22] MEDS: OXcarbazepine 300 MG TABLET 600 MG PO ×2 (08:23→21:17)
[2022-09-22] MEDS: DULoxetine HCl 60 MG CAPSULE.DR PO (08:24)
[2022-09-22] MEDS: methADONE HCl 20 MG/2 ML ORAL.CONC 260 MG PO (08:25)
[2022-09-22 08:31] LABS: Appearance Urine Turbid; Color Urine Yellow; Glucose Urine UA Negative (Negative); Leukocyte Esterase Urine Negative (Negative); Nitrite Urine Negative (Negative); Specific Gravity - Urine 1.025 (1.005-1.025); Urine Blood Negative (Negative); Urine Ketones Negative (Negative); Urine Protein Negative (Neg-Trace)
[2022-09-22 08:38] LABS: Estimated Average Glucose 97 mg/dL
[2022-09-22] MEDS: diazePAM 5 MG TABLET 10 MG PO ×2 (08:45→14:20)
[2022-09-22 09:11] VITALS: BP 122/74; PULSE 78; O2SAT 96
[2022-09-22 09:17] LABS: Cholesterol 143 mg/dL; HDL Cholesterol 38 mg/dL; LDL Cholesterol Calculated 84 mg/dl; Magnesium 2.2 mg/dL (1.6-2.6); Triglycerides 106 mg/dL
[2022-09-22 09:39] LABS: Free T4 (Free Thyroxine) 0.77 ng/dL (0.71-1.85); Thyroid Stimulating Hormone 0.36 uIU/mL (0.32-4.0)
[2022-09-22 10:15] LABS: Folate 10.6 ng/mL (> or = 4.0); Vitamin B12 434 pg/mL (200-900)
[2022-09-22] MEDS: Ibuprofen 800 MG TABLET PO (11:43)
[2022-09-22] MEDS: Nicotine Polacrilex 2 MG GUM 4 MG BUCCAL ×3 (11:43→22:07)
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
--- NOTE | 2022-09-22 17:50 | P.DS_ITS ---
DS: Providers Provider Date of Service: 09/23/22 Date of admission: 09/21/22 14:45 Date of discharge: 09/23/22 Primary care physician: Unknown Physician Admitting clinician: Sheila Carrillo Attending physician on admission: Kai Ortiz Attending physician on discharge: Kai Ortiz Discharging clinician: Sheila Carrillo DS: Diagnosis Discharge Diagnosis (1) Opioid use disorder, moderate, dependence: Status: Acute (2) MDD (major depressive disorder), recurrent episode, moderate: Status: Acute (3) PTSD (post-traumatic stress disorder): Status: Acute DS: Medications Discharge Medications Home Medications: Home Medications Medication Instructions Recorded Confirmed valacyclovir 500 mg tablet 500 mg PO DAILY 01/13/22 09/19/22 (Valtrex) albuterol sulfate 90 mcg/actuation 2 puff inhalation Q4H PRN 09/19/22 09/19/22 aerosol inhaler (ProAir HFA) Shortness Of Breath Or Wheezing ibuprofen 800 mg tablet 1 tab PO TID PRN lower extremity 09/19/22 09/19/22 pain methadone 10 mg/mL oral concentrate 60 mg PO BEDTIME 09/19/22 09/19/22 methadone 10 mg/mL oral concentrate 260 mg PO DAILY 09/19/22 09/19/22 nicotine (polacrilex) 4 mg gum 1 ea PO Q1H PRN nicotine cravings 09/19/22 1 11/19/21 pantoprazole 40 mg tablet,delayed 1 tab PO DAILY@0630 09/19/22 09/19/22 release Previous Rx's Medication Instructions Recorded buspirone 10 mg tablet 10 mg PO TID #42 tabs 09/22/22 diazepam 10 mg tablet 1 tab PO TID PRN Anxiety #21 tabs 09/22/22 duloxetine 30 mg capsule,delayed 30 mg PO DAILY #15 caps 09/22/22 release (Cymbalta) duloxetine 60 mg capsule,delayed 60 mg PO DAILY #15 caps 09/22/22 release (Cymbalta) gabapentin 600 mg tablet 1,200 mg PO TID #84 tabs 09/22/22 oxcarbazepine 300 mg tablet 900 mg PO BEDTIME #42 tabs 09/22/22 (Trileptal) oxcarbazepine 600 mg tablet 600 mg PO DAILY #15 tabs 09/22/22 (Trileptal) prazosin 1 mg capsule 1 mg PO BEDTIME #15 caps 09/22/22 quetiapine 25 mg tablet 1 tab PO BEDTIME PRN Insomnia #15 09/22/22 tabs quetiapine 50 mg tablet 1 tab PO BEDTIME #15 tabs 09/22/22 Mental Status Exam Mental Status Exam Patient Appearance: Appropriate Patient Orientation: Person, Place, Time and Situation Level of Consciousness: Alert Patient Behavior: Talkative, Cooperative and Good Eye Contact Mood Description: Constricted Affect Description: Constricted Patient Cognition Impaired: No Ability to Follow Directions: Good Speech Pattern: Spontaneous Speech Memory Description: Intact Hallucinations: None Delusions: Not Present Perceptual Disturbances: Depersonalization and Derealization Thought Process: Intact and Goal Oriented Thought Content: positive for Intact, positive for Goal Oriented and positive for Suicidal Ideation (denies) Depressive Symptoms: Low Self Esteem Judgement: Good Data Data Completed and Pending Completed studies during hospitalization [Text1]: 09/18/22 09/18/22 09/18/22 20:44 22:06 22:06 WBC 8.2 RBC 4.18 L Hgb 12.3 L Hct 36.8 L MCV 88.0 MCH 29.4 MCHC 33.4 RDW 13.2 Plt Count 320 MPV 9.1 L Immature Gran % (Auto) 0.2 Neut % (Auto) 54.9 Lymph % (Auto) 34.1 [place] % (Auto) 8.5 Eos % (Auto) 2.2 Baso % (Auto) 0.1 Lymph # (Auto) 2.8 [place] # (Auto) 0.7 Eos # (Auto) 0.2 Baso # (Auto) 0.0 Abs Immat Gran (auto) 0.02 Absolute Neuts (auto) 4.5 Absolute Nucleated RBC 0.000 Nucleated RBC % (auto) 0.0 Sodium 140 Potassium 4.3 Chloride 104 Carbon Dioxide 25 Anion Gap 15 BUN 14 Creatinine 0.78 Estim Creat Clear Calc 203.3 Estimated GFR > 60 Random Glucose 89 Estimat Average Glucose Hemoglobin A1c % Calcium 9.2 Magnesium Total Bilirubin 0.3 Direct Bilirubin 0.2 AST 34 ALT 30 Alkaline Phosphatase 106 D Total Protein 7.6 Albumin 4.3 Triglycerides Cholesterol LDL Cholesterol, Calc HDL Cholesterol Vitamin B12 Folate TSH Free T4 Urine Color Urine Appearance Urine pH Ur Specific [place] Urine Protein Urine Glucose (UA) Urine Ketones Urine Blood Urine Nitrite Ur Leukocyte Esterase Urine Opiates Screen Urine Fentanyl Screen Ur Barbiturates Screen Ur Phencyclidine Scrn Ur Amphetamines Screen U Benzodiazepines Scrn Urine Cocaine Screen U Marijuana (THC) Screen Ethyl Alcohol < 10 COVID-19 ([facility]) Negative COVID-19 Clin Com See Note 09/21/22 09/21/22 09/22/22 11:54 11:54 08:05 WBC RBC Hgb Hct MCV MCH MCHC RDW Plt Count MPV Immature Gran % (Auto) Neut % (Auto) Lymph % (Auto) [place] % (Auto) Eos % (Auto) Baso % (Auto) Lymph # (Auto) [place] # (Auto) Eos # (Auto) Baso # (Auto) Abs Immat Gran (auto) Absolute Neuts (auto) Absolute Nucleated RBC Nucleated RBC % (auto) Sodium Potassium Chloride Carbon Dioxide Anion Gap BUN Creatinine Estim Creat Clear Calc Estimated GFR Random Glucose Estimat Average Glucose 97 Hemoglobin A1c % 5.0 Calcium Magnesium Total Bilirubin Direct Bilirubin AST ALT Alkaline Phosphatase Total Protein Albumin Triglycerides Cholesterol LDL Cholesterol, Calc HDL Cholesterol Vitamin B12 Folate TSH Free T4 Urine Color Yellow Urine Appearance Turbid Urine pH 6.0 Ur Specific [place] 1.025 Urine Protein Negative Urine Glucose (UA) Negative Urine Ketones Negative Urine Blood Negative Urine Nitrite Negative Ur Leukocyte Esterase Negative Urine Opiates Screen Not Detected Urine Fentanyl Screen POSITIVE H Ur Barbiturates Screen Not Detected Ur Phencyclidine Scrn Not Detected Ur Amphetamines Screen Not Detected U Benzodiazepines Scrn POSITIVE H Urine Cocaine Screen POSITIVE H U Marijuana (THC) Screen Not Detected Ethyl Alcohol COVID-19 ([facility]) COVID-19 Clin Com 09/22/22 09/22/22 08:05 08:05 WBC RBC Hgb Hct MCV MCH MCHC RDW Plt Count MPV Immature Gran % (Auto) Neut % (Auto) Lymph % (Auto) [place] % (Auto) Eos % (Auto) Baso % (Auto) Lymph # (Auto) [place] # (Auto) Eos # (Auto) Baso # (Auto) Abs Immat Gran (auto) Absolute Neuts (auto) Absolute Nucleated RBC Nucleated RBC % (auto) Sodium Potassium Chloride Carbon Dioxide Anion Gap BUN Creatinine Estim Creat Clear Calc Estimated GFR Random Glucose Estimat Average Glucose Hemoglobin A1c % Calcium Magnesium 2.2 Total Bilirubin Direct Bilirubin AST ALT Alkaline Phosphatase Total Protein Albumin Triglycerides 106 Cholesterol 143 LDL Cholesterol, Calc 84 HDL Cholesterol 38 Vitamin B12 434 Folate 10.6 TSH 0.36 Free T4 0.77 Urine Color Urine Appearance Urine pH Ur Specific [place] Urine Protein Urine Glucose (UA) Urine Ketones Urine Blood Urine Nitrite Ur Leukocyte Esterase Urine Opiates Screen Urine Fentanyl Screen Ur Barbiturates Screen Ur Phencyclidine Scrn Ur Amphetamines Screen U Benzodiazepines Scrn Urine Cocaine Screen U Marijuana (THC) Screen Ethyl Alcohol COVID-19 ([facility]) COVID-19 Clin Com DS: Summary Hospital Course Hospital Course: Admission to adult psychiatry for exacerbation of symptoms of recurrent major depression, PTSD, opiate use disorder. Pt had a very brief length of stay. Medication dosages were adjusted and pt was discharged to return to out patient providers and his Methadone team Time spent discussing smoking cessation with patient: 3 to 10 minutes Status at Discharge Functional status at discharge: independent ambulation Overall status at discharge: patient is progressing back to baseline Time Spent with Patient Time attestation: Total time spent providing and/or coordinating discharge services: 35 Time spent: Greater than 30 minutes Discharge Plan Discharge Anticipated Discharge Date/Time: 09/23/22 09:47 Patient Disposition: Home, Self-Care Discharge Diagnosis: Recurrent Major Depression, Severe Opiate Use Disorder, currently on Methadone Maintenance Referrals: [facility] [Other] - 09/30/22 5:00 pm (Patient reports appointment scheduled with therapist does not require team to follow-up with providers.) [facility] Psychiatry [Other] - 10/29/22 3:30 pm (Patient reports scheduled psychiatry appointment with [facility] provider.) Jyotsna Ackerman MD [Physician] - 1 Week (office will reach out to pt. for follow-up appointmnet.) Discharge Medications: New prazosin 1 mg Capsule 1 mg PO BEDTIME Qty: 15 1RF Protocol: Hold for SBP< HOLD for SBP < : 90 duloxetine [Cymbalta] 60 mg capsule,delayed release(DR/EC) 60 mg PO DAILY Qty: 15 1RF duloxetine [Cymbalta] 30 mg capsule,delayed release(DR/EC) 30 mg PO DAILY Qty: 15 1RF gabapentin 600 mg tablet 1,200 mg PO TID Qty: 84 1RF oxcarbazepine [Trileptal] 600 mg tablet 600 mg PO DAILY Qty: 15 1RF oxcarbazepine [Trileptal] 300 mg tablet 900 mg PO BEDTIME Qty: 42 1RF Continued valacyclovir [Valtrex] 500 mg Tablet 500 mg PO DAILY methadone 10 mg/mL Concentrate 260 mg PO DAILY methadone 10 mg/mL Concentrate 60 mg PO BEDTIME nicotine (polacrilex) 4 mg gum 1 ea PO Q1H PRN (Reason: nicotine cravings) Rx Instructions: do not exceed 24 pieces per day pantoprazole 40 mg tablet,delayed release (DR/EC) 1 tab PO DAILY@0630 albuterol sulfate [ProAir HFA] 90 mcg/actuation HFA aerosol inhaler 2 puff inhalation Q4H PRN (Reason: Shortness Of Breath Or Wheezing) ibuprofen 800 mg tablet 1 tab PO TID PRN (Reason: lower extremity pain) quetiapine 25 mg tablet 1 tab PO BEDTIME PRN (Reason: Insomnia) Qty: 15 1RF diazepam 10 mg tablet 1 tab PO TID PRN (Reason: Anxiety) Qty: 21 3RF quetiapine 50 mg tablet 1 tab PO BEDTIME Qty: 15 1RF Changed buspirone 10 mg tablet 10 mg PO TID Qty: 42 1RF Discontinued gabapentin 400 mg Capsule 1,200 mg PO TID Qty: 126 0RF oxcarbazepine 300 mg Tablet 600 mg PO BID Qty: 120 0RF duloxetine 60 mg Capsule,Delayed Release(Dr/Ec) 60 mg PO DAILY Qty: 30 0RF prazosin 1 mg capsule 1 cap PO BEDTIME quetiapine 200 mg tablet 1 tab PO BEDTIME Discharge Orders: Discharge Order (Routine); Ordered 09/23/22 Ordered By: Sheila Carrillo Diet: Advance to usual diet Activity on Discharge: As tolerated Stand Alone Forms: Patient Portal Discharge page, Community Support Care Plan Goals: Maintain mood and safe behaviors Take medications as directed Practice coping skills Continue with your out patient providers and reach out as needed Health Concerns: Stability of mood and behaviors Plan of Treatment: Follow up with out patient providers Take medications as directed Assessment: Pt interviewed prior to discharge and found to be fully oriented and without any SI or HI. Pt has insight and demonstrates good judgment in terms of wanting to pursue treatment. Pt is not in imminent risk of harm to self or others and has a safety plan that includes presenting to the closest ER or calling 911 if feeling unsafe. Pt has been observed by the nursing and unit staff throughout admission. Pt has not engaged in any behaviors that suggest dangerousness to self or others and has demonstrated appropriate behaviors and impulse control. Pt was again interviewed with his partner present and she has not current concerns and approves of discharge as well, stating pt has accomplished what he came to the hospital to do. Discharge Date/Time: 09/23/22 08:58
[2022-09-22 21:00] VITALS: BP 124/84; PULSE 94; TEMP 36.1
[2022-09-22] MEDS: Prazosin HCL 1 MG CAPSULE PO (21:17)
[2022-09-22] MEDS: QUEtiapine Fumarate 50 MG TABLET PO (21:17)
[2022-09-22] MEDS: methADONE HCl 20 MG/2 ML ORAL.CONC 60 MG PO (21:18)
[2022-09-23 07:40] VITALS: BP 136/83; PULSE 97; TEMP 36.6; O2SAT 98
[2022-09-23] MEDS: diazePAM 5 MG TABLET 10 MG PO (08:15)
[2022-09-23] MEDS: methADONE HCl 20 MG/2 ML ORAL.CONC 260 MG PO (08:16)
[2022-09-23] MEDS: OXcarbazepine 300 MG TABLET 600 MG PO (08:19)
[2022-09-23] MEDS: Gabapentin 400 MG CAPSULE 1200 MG PO (08:19)
[2022-09-23] MEDS: busPIRone HCl 10 MG TABLET PO (08:20)
[2022-09-23] MEDS: DULoxetine HCl 60 MG CAPSULE.DR PO (08:20)
[2022-09-23] MEDS: Omeprazole 20 MG CAPSULE.DR PO (08:20)
[2022-09-23] MEDS: Nicotine Polacrilex 2 MG GUM 4 MG BUCCAL (08:23)
--- NOTE | 2022-09-23 09:07 | PC.NURSE ---
Patient is alert and oriented x4. Denies SI/HI/AH/VH. Reports to be in agreement with discharge teachings and a verbal understanding of discharge instructions. Reports anxiety surrounding methadone clinic, if they will be open for the holiday. No acute physical complaints.
== END 2022-09-23 08:58 | disposition home or self-care (01) | DRG 751 ==
LOC: HO.ED 09-21 14:18 → HO.PM5 09-21 14:56
PROVIDERS: Emergency Medicine; Nurse Practitioner Family; Admitting Provider Psychiatry & Neurology Psychiatry; Emergency Provider Emergency Medicine Emergency Medical Services; Visit Provider Clinical Nurse Specialist Psychiatric/Mental Health, Adult
DX: F33.1 Major depressive disorder, recurrent, moderate (principal); R45.851 Suicidal ideations; F11.20 Opioid dependence, uncomplicated; F43.10 Post-traumatic stress disorder, unspecified; Z20.822 Contact with and (suspected) exposure to COVID-19; Z91.041 Radiographic dye allergy status; Z88.5 Allergy status to narcotic agent; Z88.8 Allergy status to other drugs, medicaments and biological substances; Z79.899 Other long term (current) drug therapy
CPT/HCPCS: 36415; 80048; 80061; 80076; 80307; 81003; 82077; 82607; 82746; 83036; 83735; 84439; 84443; 85025; 87635; 93005; 97161; 99285